=== PATIENT | female | born 1955 | race Caucasian/White ===

== ENCOUNTER 2016-08-10 08:55 | Day surgery (SDC) | payer BC ==
[2016-08-08 10:00] VITALS: BMI 23.1
--- NOTE | 2016-08-10 08:02 | P.GSHP ---
History of Present Illness H&P Date: 08/10/16 CHIEF COMPLAINT: Colon screen HISTORY OF PRESENT ILLNESS: The patient is a 60-year-old female who presents for colon screen. Lower endoscopy was offered for further evaluation and management. PAST MEDICAL HISTORY: Please see list. PAST SURGICAL HISTORY: Please see list. MEDICATIONS: Please see list. ALLERGIES: Please see list. SOCIAL HISTORY: No illicit drug use FAMILY HISTORY: No reports of Crohn disease or ulcerative colitis. REVIEW OF ORGAN SYSTEMS: CONSTITUTIONAL: No reports of fevers or chills. PHYSICAL EXAM: VITAL SIGNS: Stable GENERAL: Well-developed pleasant in no acute distress. HEENT: No scleral icterus. Extraocular movements grossly intact. Moist buccal mucosa. NECK: Supple without lymphadenopathy. CHEST: Unlabored respirations. Equal bilateral excursions. CARDIOVASCULAR: Regular rate and rhythm. Distal 2+ pulses. ABDOMEN: Soft, nontender, nondistended. MUSCULOSKELETAL: No clubbing, cyanosis, or edema. ASSESSMENT: 1. Colon screen. PLAN: 1. Recommend proceeding with a lower endoscopy Past Medical History Past Medical History: Cancer, GERD/Reflux, Hyperlipidemia, Hypertension Additional Past Medical History / Comment(s): HX OF SKIN CANCER, NO LONGER ON BP MEDS., HIATAL HERNIA, STATES BLOOD IN STOOL., RLS. History of Any Multi-Drug Resistant Organisms: None Reported Past Surgical History: Cholecystectomy, Hysterectomy, Orthopedic Surgery Additional Past Surgical History / Comment(s): skin CA, left wrist, TUBAL , JAW SURGERY., EGD . Past Anesthesia/Blood Transfusion Reactions: Motion Sickness, Postoperative Nausea & Vomiting (PONV) Past Psychological History: Anxiety Smoking Status: Former smoker Past Alcohol Use History: Occasional Additional Past Alcohol Use History / Comment(s): QUIT SMOKING 32 YEARS AGO. SMOKED 1PPD. STARTED SMOKING AGE 18. Past Drug Use History: None Reported - Past Family History Father Family Medical History: Cancer Additional Family Medical History / Comment(s): PROSTATE CANCER Medications and Allergies Home Medications Medication Instructions Recorded Confirmed Type Sertraline [Zoloft] 100 mg PO DAILY 11/19/14 08/08/16 History Gabapentin [Neurontin] 300 mg PO HS 08/08/16 08/08/16 History Ibuprofen 400 mg PO DAILY PRN MDD STATES 08/08/16 08/08/16 History TAKEN X1 IN LAST WEEK. Omeprazole [PriLOSEC] 40 mg PO BID 08/08/16 08/08/16 History Rosuvastatin Calcium [Crestor] 40 mg PO HS 08/08/16 08/08/16 History Sudafed (Unknown Dose) 1 tab PO DAILY 08/08/16 History Allergies Allergy/AdvReac Type Severity Reaction Status Date / Time No Known Allergies Allergy Verified 08/08/16 09:44
[~2016-08-10 08:55] MED LIST: LACTATED RINGERS 1,000 ML IV SCH; LIDOCAINE 1% 20 ML VIAL (10MG/ML) FOR IV START INTRADERMA PRN
[2016-08-10 09:14] VITALS: RESP 16; TEMP 97.5
[2016-08-10] MEDS ORDERED: ONDANSETRON 4 MG/2 ML VIAL IVP ONE (09:27)
[2016-08-10] MEDS ORDERED: LIDOCAINE 1% INJ 10MG/ML (20 ML MDV) ONE (09:29)
[2016-08-10] MEDS ORDERED: PROPOFOL 10 MG/ML 20 ML VIAL IV ONE (09:29)
--- NOTE | 2016-08-10 10:13 | P.PCN ---
Date of Procedure: 08/10/16 Preoperative Diagnosis: Postoperative Diagnosis: Procedure(s) Performed: Implants: Indications for Procedure: Operative Findings: Description of Procedure: PREOPERATIVE DIAGNOSIS: Gastroesophageal reflux disease. POSTOPERATIVE DIAGNOSIS: Gastroesophageal reflux disease. Diaphragmatic hiatal hernia without obstruction. OPERATION: Esophagogastroduodenoscopy with biopsies along antrum. SURGEON: Eunice Catherine MD ANESTHESIA: MAC. INDICATIONS: The patient is a 60-year-old female who presents with a history of reflux disease. Benefits and risks of the procedure were described. Informed consent was obtained. DESCRIPTION: The patient was brought into the endoscopy suite and laid in the left lateral decubitus position. An Olympus gastroscope was passed along the posterior oropharynx down to the distal esophagus where the squamocolumnar junction was encountered at 40 cm from the incisors. The stomach was entered and no bile reflux was found. Additional findings are listed below. Biopsies with cold forceps were obtained of the antrum. The first through third portion of the duodenum was examined and unremarkable. Retroflexion of the scope confirmed Hill grade 4 lower esophageal valve. The squamocolumnar junction demostrated LA grade A erosive esophagitis. The stomach was desufflated. The patient tolerated the procedure well. FINDINGS: Squamocolumnar junction 40 cm from the incisors. Diaphragmatic hiatus at 43 cm. Hiatal hernia 3 cm. Hill grade 4 lower esophageal valve. LA grade A erosive esophagitis. No active duodenitis. Mild chronic gastritis. RECOMMENDATIONS: Continue medical therapy. Further recommendations pending results of pathology report. Upper endoscopy as needed. Will benefit from antireflux surgical procedure
[2016-08-10 10:48] VITALS: BP 152/85; PULSE 63
== END 2016-08-10 11:45 | disposition home or self-care (01) ==
LOC: ORWHC2ENDO 08:55
PROVIDERS: ATTEND Surgery Plastic and Reconstructive Surgery
DX: Z12.11 Encounter for screening for malignant neoplasm of colon (principal); K63.5 Polyp of colon; K29.50 Unspecified chronic gastritis without bleeding; Z87.891 Personal history of nicotine dependence; K21.9 Gastro-esophageal reflux disease without esophagitis; I10 Essential (primary) hypertension; E78.5 Hyperlipidemia, unspecified; Z79.899 Other long term (current) drug therapy
CPT/HCPCS: 88305; 88342; 45380; 43239; J2405; J2001; J2704

== ENCOUNTER 2016-10-07 09:27 | Inpatient (IN) | payer BC, OTHER ==
[2016-09-29 16:48] VITALS: BMI 23.3
--- NOTE | 2016-10-07 06:56 | P.GSHP ---
History of Present Illness H&P Date: 10/07/16 CHIEF COMPLAINT: Paraesophageal hiatal hernia with gastroesophageal reflux disease. HISTORY OF PRESENT ILLNESS: The patient is a 60-year-old female who presents with paraesophageal hiatal hernia. She has completed an esophageal manometry including upper endoscopy workup. Now she presents for surgical intervention. PAST MEDICAL HISTORY: Please see list. PAST SURGICAL HISTORY: Please see list. MEDICATIONS: Please see list. ALLERGIES: Please see list. SOCIAL HISTORY: No illicit drug use FAMILY HISTORY: No reports of Crohn disease or ulcerative colitis. REVIEW OF ORGAN SYSTEMS: CONSTITUTIONAL: No reports of fevers or chills. GI: Denies any blood in stools or constipation. PHYSICAL EXAM: VITAL SIGNS: Stable GENERAL: Well-developed pleasant and in no acute distress. HEENT: No scleral icterus. Extraocular movements grossly intact. Moist buccal mucosa. NECK: Supple without lymphadenopathy. CHEST: Unlabored respirations. Equal bilateral excursions. CARDIOVASCULAR: Regular rate and rhythm. Distal 2+ pulses. ABDOMEN: Soft, nondistended. No peritoneal signs. MUSCULOSKELETAL: No clubbing, cyanosis, or edema. ASSESSMENT: 1. Diaphragmatic paraesophageal hiatal hernia with severe gastroesophageal reflux disease. PLAN: 1. Recommend proceeding with a laparoscopic paraesophageal hiatal hernia with possible Chen and mesh placement. 2. Benefits and risks of surgical intervention was discussed including possibility of open technique. 3. Inpatient hospitalization recommended of 2 nights or less. 4. DVT prophylaxis. 5. Antibiotic prophylaxis. 6. She has also completed a very low caloric high-protein diet to address underlying hepatomegaly. Past Medical History Past Medical History: Cancer, GERD/Reflux, Hyperlipidemia, Hypertension Additional Past Medical History / Comment(s): HX OF SKIN CANCER. OFF HTN RX SINCE 2014. HIATAL HERNIA. HX BLOOD IN STOOL. RLS. VARICOSE VEINS. History of Any Multi-Drug Resistant Organisms: None Reported Past Surgical History: Cholecystectomy, Hysterectomy, Orthopedic Surgery Additional Past Surgical History / Comment(s): Skin CA. LT wrist. TUBAL . TMJ, JAW SURGERY. COLONOSCOPY. EGD . Past Anesthesia/Blood Transfusion Reactions: Motion Sickness, Postoperative Nausea & Vomiting (PONV) Smoking Status: Former smoker - Past Family History Father Family Medical History: Cancer Additional Family Medical History / Comment(s): PROSTATE CANCER Medications and Allergies Home Medications Medication Instructions Recorded Confirmed Type Sertraline [Zoloft] 100 mg PO DAILY 11/19/14 09/29/16 History Gabapentin [Neurontin] 300 mg PO HS 08/08/16 09/29/16 History Ibuprofen 400 mg PO DAILY PRN 08/08/16 09/29/16 History Omeprazole [PriLOSEC] 40 mg PO BID PRN 08/08/16 09/29/16 History Rosuvastatin Calcium [Crestor] 40 mg PO HS 08/08/16 09/29/16 History Sudafed (Unknown Dose) 1 tab PO DAILY 08/08/16 09/29/16 History Fluticasone Nasal [place] [Flonase 2 spr EA NOSTRIL DAILY PRN 09/29/16 09/29/16 History Nasal [place]] Allergies Allergy/AdvReac Type Severity Reaction Status Date / Time No Known Allergies Allergy Verified 09/29/16 16:13
[~2016-10-07 09:27] MED LIST changes: +ACETAMINOPHEN IVPB ONE; +DEXAMETHASONE SOD PHOSPHATE 10 MG/ML 1 ML VIAL IV ONE; +HEPARIN SODIUM,PORCINE 5,000 UNIT/ML 1 ML VIAL SQ ONE; +HYDROmorphone 1 MG/ML 1 ML SYRINGE IVP PRN; -LIDOCAINE 1% 20 ML VIAL (10MG/ML) FOR IV START INTRADERMA PRN; +MIDAZOLAM 2 MG/2 ML VIAL IV PRN; +ONDANSETRON 4 MG/2 ML VIAL IVP ONE; +SCOPOLAMINE 1.5MG/72HR PATCH TRANSDERM ONE; +SCOPOLAMINE 1.5MG/72HR PATCH TRANSDERM STA; +ceFAZolin 2 GM in SODIUM CHLORIDE 0.9% 100 ML IVPB ONE
[2016-10-07] MEDS ORDERED: PROPOFOL 10 MG/ML 20 ML VIAL IV ONE (11:44)
[2016-10-07] MEDS ORDERED: LIDOCAINE 1% INJ 10MG/ML (20 ML MDV) ONE (11:44)
[2016-10-07] MEDS ORDERED: SUCCINYLCHOLINE CHLORIDE 100 MG/5 ML SYR IV ONE (11:44)
[2016-10-07] MEDS ORDERED: ePHEDrine SULFATE/0.9% NACL/PF 50 MG/5 ML SYRINGE IV ONE (11:44)
[2016-10-07] MEDS ORDERED: fentaNYL (PF) 50 MCG/ML 2 ML AMP ONE (11:44)
[2016-10-07] MEDS ORDERED: HYDROmorphone (PF) 1 MG/ML ONE (11:44)
[2016-10-07] MEDS ORDERED: ROCURONIUM BROMIDE 10 MG/ML 10 ML VIAL IV ONE (11:44)
[2016-10-07] MEDS ORDERED: GLYCOPYRROLATE 0.2 MG/ML 2 ML VIAL ONE (11:44)
[2016-10-07] MEDS ORDERED: LABETALOL 5 MG/ML VIAL MDV ONE (11:44)
[2016-10-07] MEDS ORDERED: NEOSTIGMINE 1 MG/ML 10 ML VIAL ONE (11:44)
[2016-10-07] MEDS ORDERED: BUPIVACAINE (PF) 0.25% 30 ML VIAL SQ ONE (12:59)
--- NOTE | 2016-10-07 14:01 | P.PCN ---
Date of Procedure: 10/07/16 Preoperative Diagnosis: Gastroesophageal reflux disease, paraesophageal hiatal hernia Postoperative Diagnosis: Same, 5 cm reducible paraesophageal hiatal hernia Procedure(s) Performed: Laparoscopic paraesophageal hiatal hernia hernia repair, 5 cm with lower Biopatch a, intraoperative esophagogastroduodenoscopy Implants: Anesthesia: GETA, local Surgeon: Eunice Catherine Estimated Blood Loss (ml): 5 Pathology: none sent Condition: stable Disposition: floor Indications for Procedure: Operative Findings: 1. Paraesophageal hiatal hernia, 5 cm. 2. Intra-abdominal esophageal length over 3 cm. 3. Third arm docked along the right side of the patient. 4. Severe pelvic adhesions. Description of Procedure:
[2016-10-07] MEDS ORDERED: NALOXONE 0.4 MG/ML 1 ML VIAL IV PRN (14:02)
[2016-10-07] MEDS ORDERED: ONDANSETRON 4 MG/2 ML VIAL IVP PRN (14:02)
[2016-10-07] MEDS ORDERED: diphenhydrAMINE 50 MG/ML 1 ML VIAL IVP PRN (14:02)
--- NOTE | 2016-10-07 14:41 | P.HPADDEND ---
H&P Addendum H&P Addendum Date: 10/07/16 Robotic-assisted laparoscopic hiatal hernia repair was also discussed as an option for surgical intervention.
[2016-10-07] MEDS: 0.9% NACL WITH KCL 20 MEQ/L 1,000 ML IV SCH ×2 (16:10→18:26)
[2016-10-07] MEDS: KETOROLAC 30 MG/ML 1 ML VIAL IVP SCH ×2 (16:10→23:56)
[2016-10-07] MEDS: MAGNESIUM SULFATE-D5W PMX 1 GM in DEXTROSE/WATER 1 100ML.BAG IVPB SCH ×2 (16:10→17:11)
[2016-10-07] MEDS: ALBUTEROL NEBULIZED 2.5 MG/3 ML INHALATION SCH ×2 (16:50→20:25)
[2016-10-07] MEDS: HYDROcodone/APAP 15 ML SOLUTION PO PRN (17:06)
[2016-10-07] MEDS: AMPICILLIN-SULBACTAM 3 GM in SODIUM CHLORIDE 0.9% 100 ML IVPB SCH ×2 (18:44→23:50)
[2016-10-07] MEDS: METOCLOPRAMIDE 5 MG/ML 2 ML VIAL IVP SCH (18:44)
[2016-10-07] MEDS: SIMETHICONE 40 MG/0.6 ML DROPS 2,000 MG/30 ML BOTTLE PO SCH ×2 (18:48→23:52)
[2016-10-07] MEDS: HYOSCYAMINE ORAL DROPS 1.875 MG/15 ML BOTTLE PO SCH ×2 (18:49→23:53)
--- NOTE | 2016-10-07 20:36 | P.PN ---
Progress Note - Text Patient seen and evaluated this evening. She reports immediate improvement and resolution of her reflux disease. She reports intolerance to her nebulizers. She does complain of shoulder discomfort which is expected given laparoscopic surgery. Patient may be discharged home tomorrow following her esophagram with follow-up in the office next week. Strict no lifting over for 4 pounds in 4 weeks.
[2016-10-08] MEDS: METOCLOPRAMIDE 5 MG/ML 2 ML VIAL IVP SCH ×2 (00:01→06:10)
[2016-10-08] MEDS: HYDROcodone/APAP 15 ML SOLUTION PO PRN (00:08)
[2016-10-08] MEDS: 0.9% NACL WITH KCL 20 MEQ/L 1,000 ML IV SCH (02:52)
[2016-10-08] MEDS: KETOROLAC 30 MG/ML 1 ML VIAL IVP SCH (06:02)
[2016-10-08] MEDS: HYOSCYAMINE ORAL DROPS 1.875 MG/15 ML BOTTLE PO SCH (06:07)
[2016-10-08] MEDS: SIMETHICONE 40 MG/0.6 ML DROPS 2,000 MG/30 ML BOTTLE PO SCH (06:09)
[2016-10-08 07:10] LABS: Basophils % (A) 0 %; CH 30.8; CHCM 34.2; Eosinophils % (A) 0 %; HCT 33.9 % (34.0-46.0); HDW 2.86; Luc # (Auto) 0.16; Luc % (Auto) 2; Lymphocytes % (A) 12 %; MCH 29.5 pg (25.0-35.0); MCHC 32.5 g/dL (31.0-37.0); MCV 90.6 fL (80.0-100.0); Mean Platelet Volume 7.8; Monocytes # (A) 0.3 k/uL (0-1.0); Monocytes % (A) 4 %; Neutrophils % (A) 82 %; RBC 3.74 m/uL (3.80-5.40); RDW 14.5 % (11.5-15.5); WBC 8.5 k/uL (3.8-10.6); WBC (Perox) 9.07
[2016-10-08 07:18] LABS: Anion Gap 5 mmol/L; Blood Urea Nitrogen 9 mg/dL (7-17); Calcium 8.5 mg/dL (8.4-10.2); Carbon Dioxide 26 mmol/L (22-30); Chloride 110 mmol/L (98-107); Magnesium 2.1 mg/dL (1.6-2.3); Non-African American GFR(MDRD) >60 (>60 ml/min/1.73 sqM); Phosphorus 2.6 mg/dL (2.5-4.5); Potassium 4.5 mmol/L (3.5-5.1); Sodium 141 mmol/L (137-145)
[2016-10-08 07:33] VITALS: BP 123/76; PULSE 74; RESP 16; TEMP 98.7
--- NOTE | 2016-10-08 07:59 | FL ---
SINGLE CONTRAST UPPER GI EXAMINATION: CLINICAL HISTORY: 60-year-old female postop Chen fundoplication, hiatal hernia repair. TECHNIQUE: Single contrast exam performed with 50 ml Omnipaque 350 contrast. Total fluoroscopy time: 20 seconds. Total images: 13. FINDINGS: The patient swallowed oral contrast without difficulty or delay. Esophageal peristalsis and motility are within normal limits. There are postsurgical changes of Chen fundoplication. There is good evon w of contrast along the course of the lap band, there is no evidence of contrast extravasation to sug gest leak. No postsurgical free air seen. Prominent air and fluid distending the stomach below the cordero rgical level. IMPRESSION: No evidence of leak or significant obstruction status post Chen fundoplication. Prominent air and f luid-filled stomach below the fundoplication.
[2016-10-08] MEDS ORDERED: 0.9% NACL WITH KCL 20 MEQ/L 1,000 ML IV SCH (08:00)
[2016-10-08] MEDS ORDERED: ENOXAPARIN 40 MG/0.4 ML SYRINGE SQ SCH (09:00)
[2016-10-08] MEDS ORDERED: PANTOPRAZOLE 40 MG/10 ML VIAL IV SCH (09:00)
--- NOTE | 2016-10-10 17:18 | P.OP ---
Date of Procedure: 10/07/16 Preoperative Diagnosis: Postoperative Diagnosis: Procedure(s) Performed: Implants: Indications for Procedure: Operative Findings: Description of Procedure: DESCRIPTION OF PROCEDURE(S): SURGEON: MONET HUFF MD MANAGER INVESTMENT: Wendy Prince PREOPERATIVE DIAGNOSES: 1. Gastroesophageal reflux disease. 2. Symptomatic paraesophageal midline diaphragmatic hiatal hernia. 3. History of past tobacco use. 4. Hyperlipidemia. 5. Hypertensive heart disease. 6. Postoperative nausea and vomiting. POSTOPERATIVE DIAGNOSES: 1. Gastroesophageal reflux disease. 2. Symptomatic reducible paraesophageal midline diaphragmatic hiatal hernia, 5 cm. 3. History of past tobacco use. 4. Hyperlipidemia. 5. Hypertensive heart disease. 6. Postoperative nausea and vomiting. 7. Lower abdominal peritoneal adhesions. OPERATION: 1. Robotic-assisted laparoscopic repair of reducible midline paraesophageal hiatal hernia, 5 cm, with Cotton Biopatch A 8 x 8 cm. 2. Intraoperative esophagogastroduodenoscopy ANESTHESIA: General with local anesthetic. ESTIMATED BLOOD LOSS: 5 mL SPECIMENS REMOVED: Mediastinal mass with hernia sac. COMPLICATIONS: None. FINDINGS: 1. Thoracic length 15 cm. 2. Port splaced 15 cm distal. 3. Severe pelvic adhesions. 4. 5 cm paraesophageal incarcerated diaphragmatic hiatal hernia with moderate dissection into the mediastinum. 5. Cotton Biopatch A onlay mesh placed. 6. Closure of the hiatus consistent with 56-Cypriot bougie. 7. Intra-abdominal esophageal length over 3 cm. 8. Third arm docked along the right side of the patient. INDICATIONS: The patient is a 60-year-old female who presents with regurgitation, gastroesophageal reflux disease poorly controlled despite medications, and a symptomatic diaphragmatic hiatal hernia. Preoperative workup including upper endoscopy demonstrated a Hill grade 4 lower esophageal valve. She completed an esophageal manometry. Given the severity of her symptoms, particularly of her symptomatic diaphragmatic hiatal hernia, she had elected for surgical intervention. Benefits and risks including bleeding, infection, recurrence, dysphagia, injury to the lung, need for further surgery was described at length. Informed consent was obtained. DESCRIPTION: The patient was brought into the operating room and placed in supine position. Preoperatively she had received Heparin subcutaneously for DVT prophylaxis. After general induction, the abdomen was prepped and draped in standard sterile fashion. The patient had previously voided prior to coming to the operating room. Ioban draping was placed along the abdomen. A timeout protocol was confirmed with the surgical team, for which the patient's name, procedure to be performed including DVT prophylaxis with bilateral SCDs, and preoperative antibiotics were also confirmed. A robotic da Jhon Si system was prepped and primed. At 15 cm from the xiphoid to just lateral to the umbilicus, proposed port sites were marked with indelible marker along the left axillary line, left mid-clavicular line with each port marked 10 cm from each other. A 5 mm 0 degrees laparoscopic trocar entry was performed along the left upper quadrant. The abdomen was insufflated to 15 mmHg pressure she tolerated well. Diagnostic laparoscopy demonstrated no injury to bowel, viscera, or mesentery. The liver surface was unremarkable. No injury had occurred to the small bowel or viscera. Along the hiatus, a defect was found anteriorly. Separately, severe lower pelvic adhesions were identified including along the left lateral abdominal wall. As result of moderate adhesions along the left lateral abdominal wall, a third arm was proposed to be docked along the right lateral abdominal wall. Next, one 8 mm robotic port was placed along the right upper abdomen. An 8-mm port was were placed along the right lateral abdominal wall. The camera 12-mm port extended length was maintained along the epigastrium. Another 8 mm port was placed along the left upper abdominal wall after exchanging the 5 mm port. Please note that the ports were placed at least 20 cm away from the target anatomy. Care was taken to check that each robotic arm were safely away from collision with the bed or the patient. At the epigastrium, a median sized Tres liver retractor was placed under direct visualization with the Iron Log Grader placed over the right shoulder of the patient. The additional third robotic arm was placed along the right aspect of the patient. The patient was repositioned in reverse Trendelenburg position after lowering the bed. The robot was docked above the head of the patient. Using a grasper for arm 3, a grasper for arm 2, including vessel sealer for arm 1, the robotic system was docked and primed as described. Instruments were interchanged by the liaison inspection laboratory assistant including cautery, scissors, and needle delivery route driver. I had sat at the console. The gastrohepatic ligament was cleaved using a vessel sealer. Next, the phrenoesophageal ligament was mobilized and the distal esophagus was mobilized circumferentially without injury to the bilateral vagi nerves. The left and right crura was identified. A moderate sized midline large hiatal hernia and sac was found into the mediastinum. Significant mobilization of the distal to mid esophagus into the mediastinum was performed without injury to the vagotomy nerves. Circumferentially, the hernia sac was excised and brought into the peritoneal cavity. Care was taken to avoid any gastrotomy to the upper pole of the stomach. The measured defect was consistent with 5 cm. After extensive dissection, the distal esophagus at least cm was brought into the abdominal cavity. A large mediastinal mass of 5 cm x 9 cm, which is also a lead point for the incarcerated paraesophageal hiatal hernia, was resected using a vessel sealer and placed into abdominal cavity for later extraction of the specimen using an Endo Catch bag. Once the hiatus and crura was dissected, 2-0 VLOC suture was placed with a running suture of [id number] suture to reapproximate the diaphragmatic hiatus posteriorly. To buttress the repair, a Cotton Biopatch A was prepared along the back table and cut in a glaser-hole fashion as to reinforce the repair as an underlay. The mesh was placed along the crural repair and tagged using 2-0 VLOC suture. The robot was undocked from the patient. I went to the head of the bed to perform intraoperative esophagogastroduodenoscopy. An Olympus gastroscope was passed through posterior oropharynx, where the GE junction was found distal to the diaphragmatic hiatus. The intra-abdominal esophageal length obtained during the case was over 3 cm. The stomach was entered. Retroflexion of the scope confirmed a Hill grade 1 lower esophageal valve. The stomach had been desufflated. No evidence of leaks were found either of the mucosal defects of the esophagus or stomach. A 52 Cypriot bougie was passed careful along the posterior esophagus and beyond the hiatal repair confirming appropriate closure. This concluded the endoscopic portion of the case. I re-scrubbed into the case. All instruments and pneumoperitoneum were evacuated from the abdominal cavity. Incisions were reapproximated using 4-0 Monocryl in an interrupted subcuticular fashion. The 12-mm port site was oversewn using 0 Vicryl in a Noel [place]ning[place]. Dermabond was applied to the skin. Local anesthetic was infiltrated in all wounds for postop analgesia. Multiple intra-abdominal films were obtained. At the end of the procedure, needle, sponge, and instrument count was verified correct by the surgical appliance fitter. The patient had tolerated the procedure well and was taken to the postanesthesia unit in stable condition. Intraoperative films were reviewed with the patient's family who was pleased with the level of care.
--- NOTE | 2016-10-10 17:21 | P.DS ---
Providers Date of admission: 10/07/16 10:26 Expected date of discharge: 10/08/16 Attending physician: Eunice Catherine Primary care physician: Stated None - Discharge Diagnosis(es) (1) Paraesophageal hiatal hernia Status: Acute (2) Gastroesophageal reflux disease Status: Acute (3) Hypertension Status: Acute (4) Hyperlipidemia Status: Acute (5) History of repair of hiatal hernia Status: Acute Hospital Course: POSTOPERATIVE DIAGNOSES: 1. Gastroesophageal reflux disease. 2. Symptomatic reducible paraesophageal midline diaphragmatic hiatal hernia, 5 cm. 3. History of past tobacco use. 4. Hyperlipidemia. 5. Hypertensive heart disease. 6. Postoperative nausea and vomiting. 7. Lower abdominal peritoneal adhesions. COURSE: The patient is a 60-year-old female who comes with history of symptomatic diaphragmatic hiatal hernia including severe reflux disease. She completed outpatient studies including upper endoscopy as well as manometry. She elected for a laparoscopic hiatal hernia repair however performed robotically. Postoperatively, she was tolerating diet. Her reflux disease and symptoms had completely resolved. She had passed her esophagram. Post hiatal hernia diet instructions were reviewed. The patient was discharged home with instructions to discontinue her antiacids. Pertinent Studies: Esophagram demonstrated no leak or obstruction Procedures: OPERATION: 1. Robotic-assisted laparoscopic repair of reducible midline paraesophageal hiatal hernia, 5 cm, with Kersey Biopatch A 8 x 8 cm. 2. Intraoperative esophagogastroduodenoscopy Patient Condition at Discharge: Good Plan - Discharge Summary New Discharge Prescriptions: New Hydrocodone/Acetaminophen [[place] 5-325] 1 - 2 each PO Q6HR PRN #20 tab PRN Reason: Pain Discontinued Omeprazole [PriLOSEC] 40 mg PO BID PRN PRN Reason: GERD No Action Sertraline [Zoloft] 100 mg PO DAILY Gabapentin [Neurontin] 300 mg PO HS Sudafed (Unknown Dose) 1 tab PO DAILY Rosuvastatin Calcium [Crestor] 40 mg PO HS Ibuprofen 400 mg PO DAILY PRN PRN Reason: Pain Fluticasone Nasal [place] [Flonase Nasal [place]] 2 spr EA NOSTRIL DAILY PRN PRN Reason: ALLERGIES/SINUS Discharge Medication List Sertraline [Zoloft] 100 mg PO DAILY 11/19/14 [History] Gabapentin [Neurontin] 300 mg PO HS 08/08/16 [History] Ibuprofen 400 mg PO DAILY PRN 08/08/16 [History] Rosuvastatin Calcium [Crestor] 40 mg PO HS 08/08/16 [History] Sudafed (Unknown Dose) 1 tab PO DAILY 08/08/16 [History] Fluticasone Nasal [place] [Flonase Nasal [place]] 2 spr EA NOSTRIL DAILY PRN [History] Hydrocodone/Acetaminophen [[place] 5-325] 1 - 2 each PO Q6HR PRN #20 tab 10/07/16 [Rx] Follow up Appointment(s)/Referral(s): Eunice Catherine MD [STAFF PHYSICIAN] - 10/11/16 Patient Instructions/Handouts: Full Liquid Diet (DC), Laparoscopic Hiatal Hernia Repair (DC) Activity/Diet/Wound Care/Special Instructions: No lifting over 4 pounds in [address] Catherine [facility] dietary guideline. No meats, breads or carbonated beverages for 4 weeks. If any fever, increased abdominal pain, difficulty swallowing, or redness at the incision sites call Dr Catherine. Drink plenty of fluids and follow the dietary instructions given to you by the doctor and c.o.d. biller. See the doctor on 10-11-16, but you will need to call Monday for a time Discharge Disposition: HOME SELF-CARE
== END 2016-10-08 12:18 | disposition home or self-care (01) | DRG 328 ==
LOC: 2ORWHC 10:26 → OBSVTOIN 10:26 → INTOOBSV 10:26 → 6PED 14:15
PROVIDERS: ADMIT Surgery Plastic and Reconstructive Surgery; ATTEND Surgery Plastic and Reconstructive Surgery
PROC: 0BUR4JZ (ICD-10-PCS; 2016-10-07)
PROC: 8E0W4CZ Robotic Assisted Procedure of Trunk Region, Percutaneous Endoscopic Approach (ICD-10-PCS; 2016-10-07)
PROC: 0BUS4JZ (ICD-10-PCS; principal; 2016-10-07 11:30)
DX: K44.0 Diaphragmatic hernia with obstruction, without gangrene (principal); I11.9 Hypertensive heart disease without heart failure; R16.0 Hepatomegaly, not elsewhere classified; K21.9 Gastro-esophageal reflux disease without esophagitis; K66.0 Peritoneal adhesions (postprocedural) (postinfection); R22.2 Localized swelling, mass and lump, trunk; E78.5 Hyperlipidemia, unspecified; M25.519 Pain in unspecified shoulder; G25.81 Restless legs syndrome; R11.2 Nausea with vomiting, unspecified; Z85.828 Personal history of other malignant neoplasm of skin; Z79.899 Other long term (current) drug therapy; Z87.891 Personal history of nicotine dependence; Z79.1 Long term (current) use of non-steroidal anti-inflammatories (NSAID)
CPT/HCPCS: 74240; 80051; 82310; 82565; 83735; 84100; 84520; 85025; 86850; 86900; 86901; 94640

== ENCOUNTER → 2017-07-13 | Outpatient (CLI) | payer BC, OTHER ==
--- NOTE | 2017-07-27 12:13 | MM ---
Reason for exam: screening (asymptomatic). Last mammogram was performed 1 year and 8 months ago. History: Patient is postmenopausal. Benign ultrasound-guided core biopsy of the left breast, September 21, 1998. Core biopsy of the left breast. Physical Findings: A clinical breast exam by your physician is recommended on an annual basis and results should be correlated with mammographic findings. MG Screening Mammo w CAD Bilateral CC and MLO view(s) were taken. Prior study comparison: January 07, 2014, bilateral MG screening mammo w CAD. May 01, 2012, bilateral digital screening mammo w/CAD. The breast tissue is heterogeneously dense. This may lower the sensitivity of mammography. No significant changes when compared with prior studies. ASSESSMENT: Benign, BI-RAD 2 RECOMMENDATION: Routine screening mammogram of both breasts in 1 year.
== END | disposition home or self-care (01) ==
LOC: RADMAMWWP 12:37
PROVIDERS: ATTEND Family Medicine
DX: Z12.31 Encounter for screening mammogram for malignant neoplasm of breast (principal)
CPT/HCPCS: 77067

== ENCOUNTER 2017-08-17 15:26 | Emergency (ER) | payer BC, OTHER ==
[2017-08-17] MEDS ORDERED: SODIUM CHLORIDE 0.9% 1,000 ML IV ONE (16:38)
--- NOTE | 2017-08-17 16:41 | ED ---
General Adult HPI - General Chief complaint: GI Bleed Stated complaint: vomiting/black stool Time Seen by Provider: 08/17/17 16:23 Source: patient, RN notes reviewed, old records reviewed Mode of arrival: ambulatory Limitations: no limitations - History of Present Illness Initial comments: 61-year-old female presents for evaluation of nausea vomiting and diarrhea. Patient presents for concerns of dark tarry stool and GI bleed. She states that on Monday she developed nausea and vomiting, this progressed to diarrhea. She has had diarrhea for the past 4 days. Denies abdominal pain. Denies fever or chills. She has had some nausea since her initial episodes of vomiting but has had no vomiting in the past several days. She has no pain complaints. She' s been unable to eat much secondary to her nausea. Today she developed some dark flecks in her diarrhea was concern for bleeding. She is not on any anticoagulation, she has past medical history of hypertension and hypercholesterolemia. - Related Data Home Medications Medication Instructions Recorded Confirmed Gabapentin [Neurontin] 300 mg PO HS 08/08/16 08/17/17 Ibuprofen 400 mg PO DAILY PRN 08/08/16 08/17/17 Rosuvastatin Calcium [Crestor] 40 mg PO HS 08/08/16 08/17/17 Fluticasone Nasal [place] [Flonase 2 spr EA NOSTRIL DAILY PRN 09/29/16 08/17/17 Nasal [place]] DULoxetine HCL [Cymbalta] 60 mg PO DAILY 08/17/17 08/17/17 Lisinopril [Prinivil] 5 mg PO DAILY 08/17/17 08/17/17 Allergies Allergy/AdvReac Type Severity Reaction Status Date / Time No Known Allergies Allergy Verified 08/17/17 17:01 Review of Systems ROS Statement: Those systems with pertinent positive or pertinent negative responses have been documented in the HPI. ROS Other: All systems not noted in ROS Statement are negative. Past Medical History Past Medical History: Cancer, GERD/Reflux, Hyperlipidemia, Hypertension Additional Past Medical History / Comment(s): HX OF SKIN CANCER. OFF HTN RX SINCE 2014. HIATAL HERNIA. HX BLOOD IN STOOL. RLS. VARICOSE VEINS. History of Any Multi-Drug Resistant Organisms: None Reported Past Surgical History: Cholecystectomy, Hysterectomy, Orthopedic Surgery Additional Past Surgical History / Comment(s): Skin CA. LT wrist. TUBAL . TMJ, JAW SURGERY. COLONOSCOPY. EGD . Past Anesthesia/Blood Transfusion Reactions: Motion Sickness, Postoperative Nausea & Vomiting (PONV) Past Psychological History: Anxiety, Depression Smoking Status: Former smoker Past Alcohol Use History: Occasional Past Drug Use History: None Reported - Past Family History Father Family Medical History: Cancer Additional Family Medical History / Comment(s): PROSTATE CANCER General Exam Limitations: no limitations General appearance: alert, in no apparent distress Head exam: Present: atraumatic, normocephalic Eye exam: Present: normal appearance, PERRL, EOMI ENT exam: Present: mucous membranes dry Neck exam: Present: normal inspection. Absent: tenderness, meningismus Respiratory exam: Present: normal lung sounds bilaterally. Absent: respiratory distress, wheezes Cardiovascular Exam: Present: regular rate, normal rhythm GI/Abdominal exam: Present: soft. Absent: distended, tenderness, guarding, rebound Rectal exam: Present: normal inspection, normal rectal tone. Absent: black stool, bloody stool Extremities exam: Present: normal inspection, full ROM, normal capillary refill. Absent: pedal edema Neurological exam: Present: alert, oriented X3, CN II-XII intact. Absent: motor sensory deficit Psychiatric exam: Present: normal affect, normal mood Skin exam: Present: warm, dry, intact. Absent: cyanosis, diaphoretic Course Vital Signs 08/17/17 08/17/17 15:41 18:04 Temperature 98.4 F Pulse Rate 89 68 Respiratory 18 16 Rate Blood Pressure 141/91 144/67 O2 Sat by Pulse 98 99 Oximetry Medical Decision Making - Medical Decision Making 61-year-old female presenting with nausea vomiting and diarrhea. Patient is concerned that she may have developed some rectal bleeding with dark stool. On rectal exam there is no melena, no octavio blood, heme occult is negative. CBC within normal limits. CMP reveals potassium 3.3 which is replaced. Urinalysis is positive for 1+ ketones consistent with dehydration. As well as 6 RBCs. Patient did have some left flank pain and has history of kidney stones, therefore CT was obtained this is negative for renal stones. There is inflammation throughout the colon consistent with colitis. Patient will continue oral rehydration at home. She will follow with her primary care physician. - Lab Data Result diagrams: 08/17/17 16:42 08/17/17 16:42 Lab Results 08/17/17 08/17/1718 Range/Units 16:42 16:42 16:42 WBC 8.5 (3.8-10.6) k/uL RBC 4.55 (3.80-5.40) m/uL Hgb 14.1 (11.4-16.0) gm/dL Hct 40.7 (34.0-46.0) % MCV 89.4 (80.0-100.0) fL MCH 31.0 (25.0-35.0) pg MCHC 34.7 (31.0-37.0) g/dL RDW 13.9 (11.5-15.5) % Plt Count 213 (150-450) k/uL Neutrophils % 66 % Lymphocytes % 26 % Monocytes % 5 % Eosinophils % 1 % Basophils % 1 % Neutrophils # 5.6 (1.3-7.7) k/uL Lymphocytes # 2.2 (1.0-4.8) k/uL Monocytes # 0.4 (0-1.0) k/uL Eosinophils # 0.1 (0-0.7) k/uL Basophils # 0.0 (0-0.2) k/uL PT 10.9 (9.0-12.0) sec INR 1.1 (<1.2) APTT 25.3 (22.0-30.0) sec Sodium (137-145) mmol/L Potassium (3.5-5.1) mmol/L Chloride (98-107) mmol/L Carbon Dioxide (22-30) mmol/L Anion Gap mmol/L BUN (7-17) mg/dL Creatinine (0.52-1.04) mg/dL Est GFR (CKD-EPI)AfAm (>60 ml/min/1.73 sqM) Est GFR (CKD-EPI)NonAf (>60 ml/min/1.73 sqM) Glucose (74-99) mg/dL Calcium (8.4-10.2) mg/dL Total Bilirubin (0.2-1.3) mg/dL AST (14-36) U/L ALT (9-52) U/L Alkaline Phosphatase (38-126) U/L Total Protein (6.3-8.2) g/dL Albumin (3.5-5.0) g/dL Urine Color Urine Appearance (Clear) Urine pH (5.0-8.0) Ur Specific [place] (1.001-1.035) Urine Protein (Negative) Urine Glucose (UA) (Negative) Urine Ketones (Negative) Urine Blood (Negative) Urine Nitrite (Negative) Urine Bilirubin (Negative) Urine Urobilinogen (<2.0) mg/dL Ur Leukocyte Esterase (Negative) Urine RBC (0-5) /hpf Urine WBC (0-5) /hpf Ur Squamous Epith Cells (0-4) /hpf Urine Bacteria (None) /hpf Urine Mucus (None) /hpf Stool Occult Blood (Negative) Blood Type O Positive Blood Type Recheck No Antibody Screen NEGATIVE Spec Expiration Date 08/20/2017 - 234108/17/17 08/17/17 08/17/17 Range/Units 16:42 16:45 17:10 WBC (3.8-10.6) k/uL RBC (3.80-5.40) m/uL Hgb (11.4-16.0) gm/dL Hct (34.0-46.0) % MCV (80.0-100.0) fL MCH (25.0-35.0) pg MCHC (31.0-37.0) g/dL RDW (11.5-15.5) % Plt Count (150-450) k/uL Neutrophils % % Lymphocytes % % Monocytes % % Eosinophils % % Basophils % % Neutrophils # (1.3-7.7) k/uL Lymphocytes # (1.0-4.8) k/uL Monocytes # (0-1.0) k/uL Eosinophils # (0-0.7) k/uL Basophils # (0-0.2) k/uL PT (9.0-12.0) sec INR (<1.2) APTT (22.0-30.0) sec Sodium 140 (137-145) mmol/L Potassium 3.3 L (3.5-5.1) mmol/L Chloride 101 (98-107) mmol/L Carbon Dioxide 27 (22-30) mmol/L Anion Gap 12 mmol/L BUN 15 (7-17) mg/dL Creatinine 0.60 (0.52-1.04) mg/dL Est GFR (CKD-EPI)AfAm >90 (>60 ml/min/1.73 sqM) Est GFR (CKD-EPI)NonAf >90 (>60 ml/min/1.73 sqM) Glucose 87 (74-99) mg/dL Calcium 9.9 (8.4-10.2) mg/dL Total Bilirubin 0.8 (0.2-1.3) mg/dL AST 46 H (14-36) U/L ALT 31 (9-52) U/L Alkaline Phosphatase 77 (38-126) U/L Total Protein 7.4 (6.3-8.2) g/dL Albumin 4.7 (3.5-5.0) g/dL Urine Color Yellow Urine Appearance Clear (Clear) Urine pH 5.5 (5.0-8.0) Ur Specific [place] 1.025 (1.001-1.035) Urine Protein 1+ H (Negative) Urine Glucose (UA) Negative (Negative) Urine Ketones 1+ H (Negative) Urine Blood Moderate H (Negative) Urine Nitrite Negative (Negative) Urine Bilirubin Negative (Negative) Urine Urobilinogen 2.0 (<2.0) mg/dL Ur Leukocyte Esterase Negative (Negative) Urine RBC 6 H (0-5) /hpf Urine WBC 3 (0-5) /hpf Ur Squamous Epith Cells <1 (0-4) /hpf Urine Bacteria Rare H (None) /hpf Urine Mucus Moderate H (None) /hpf Stool Occult Blood Negative (Negative) Blood Type Blood Type Recheck Antibody Screen Spec Expiration Date Disposition Clinical Impression: Colitis, Nausea vomiting and diarrhea Disposition: HOME SELF-CARE Condition: Good Instructions: Colitis (ED) Is patient prescribed a controlled substance at d/c from ED?: No Referrals: Ena Pagan MD [Primary Care Provider] - 1-2 days Time of Disposition: 18:29
[2017-08-17 16:55] LABS: Basophils % (A) 1 %; Eosinophils # (A) 0.1 k/uL (0-0.7); Eosinophils % (A) 1 %; HCT 40.7 % (34.0-46.0); HGB 14.1 gm/dL (11.4-16.0); Lymphocytes # (A) 2.2 k/uL (1.0-4.8); Lymphocytes % (A) 26 %; MCHC 34.7 g/dL (31.0-37.0); MCV 89.4 fL (80.0-100.0); Mean Platelet Volume 7.2; Monocytes # (A) 0.4 k/uL (0-1.0); Monocytes % (A) 5 %; Neutrophils # (A) 5.6 k/uL (1.3-7.7); Neutrophils % (A) 66 %; Platelet Count 213 k/uL (150-450); RBC 4.55 m/uL (3.80-5.40); RDW 13.9 % (11.5-15.5); WBC 8.5 k/uL (3.8-10.6)
[2017-08-17 17:03] LABS: INR 1.1 (<1.2); Partial Thromboplastin Time 25.3 sec (22.0-30.0); Prothrombin Time 10.9 sec (9.0-12.0)
[2017-08-17 17:06] LABS: ALT 31 U/L (9-52); AST 46 U/L (14-36); Albumin 4.7 g/dL (3.5-5.0); Alkaline Phosphatase 77 U/L (38-126); Anion Gap 12 mmol/L; Blood Urea Nitrogen 15 mg/dL (7-17); Calcium 9.9 mg/dL (8.4-10.2); Carbon Dioxide 27 mmol/L (22-30); Chloride 101 mmol/L (98-107); Glucose 87 mg/dL (74-99); Potassium 3.3 mmol/L (3.5-5.1); Sodium 140 mmol/L (137-145); Total Bilirubin 0.8 mg/dL (0.2-1.3); Total Protein 7.4 g/dL (6.3-8.2)
[2017-08-17 17:19] LABS: Appearance,Urine Clear (Clear); Bacteria,Urine Rare /hpf; Bilirubin,Urine Negative (Negative); Blood,Urine Moderate (Negative); Color,Urine Yellow; Glucose,Urine (UA) Negative (Negative); Ketones,Urine 1+ (Negative); Leukocyte Esterase,Urine Negative (Negative); Mucus,Urine Moderate /hpf; Nitrite,Urine Negative (Negative); PH, Urine 5.5 (5.0-8.0); Protein,Urine 1+ (Negative); RBC,Urine 6 /hpf (0-5); Specific Gravity,Urine 1.025 (1.001-1.035); Squamous Epithelial Cell,Urine <1 /hpf (0-4); WBC,Urine 3 /hpf (0-5)
[2017-08-17] MEDS ORDERED: POTASSIUM CHLORIDE ER 20 MEQ TAB.ER PO STA (17:37)
--- NOTE | 2017-08-17 18:19 | CT ---
EXAMINATION TYPE: CT abdomen pelvis wo con DATE OF EXAM: 08/17/2017 COMPARISON: 11/19/2014 HISTORY: Black tarry stools and hematuria. CT DLP: 686 mGycm Automated exposure control for dose reduction was used. TECHNIQUE: Helical acquisition of images was performed from the lung bases through the pelvis. FINDINGS: There is some mild linear density at the right posterior lung base. There is no pleural effusion. The re is no pericardial effusion. Liver shows no focal defect. Bile ducts are not dilated. Spleen appears normal. There is no pancreati c mass. There are clips from cholecystectomy. There is no adrenal mass. Kidneys have normal size and contour. There is no hydronephrosis. There is no retroperitoneal adenopathy. There is mild wall thickening of the lower descending colon and proxim al sigmoid colon. There is no sign of free air. There is no ascites. Bladder distends smoothly. I see no pelvic mass. There is minimal stranding in the right paracolic gutter. I see no sign of a thicken ed appendix. I see no bony destructive process. There is narrowing of L4-5 disc space. There is no co mpression fracture in the lumbar spine. IMPRESSION: WALL THICKENING OF THE PROXIMAL SIGMOID COLON AND DESCENDING COLON CONSISTENT WITH NONSPECIFIC COLITI S. THIS APPEARS NEW COMPARED TO OLD EXAM. NO EVIDENCE OF RENAL STONE OR OBSTRUCTION.
[2017-08-17 18:58] VITALS: BP 131/63; PULSE 69; RESP 18; TEMP 98.1
== END 2017-08-17 18:57 | disposition home or self-care (01) ==
LOC: EC 15:26
DX: K52.9 Noninfective gastroenteritis and colitis, unspecified (principal); E78.5 Hyperlipidemia, unspecified; I10 Essential (primary) hypertension; G25.81 Restless legs syndrome; F41.9 Anxiety disorder, unspecified; F32.9 Major depressive disorder, single episode, unspecified; Z85.828 Personal history of other malignant neoplasm of skin; Z87.891 Personal history of nicotine dependence; Z79.899 Other long term (current) drug therapy; Z90.49 Acquired absence of other specified parts of digestive tract
CPT/HCPCS: 36415; 74176; 80053; 81001; 82272; 85025; 85610; 85730; 86850; 86900; 86901; 96360; 99285

== ENCOUNTER 2017-12-20 18:22 | Emergency (ER) | payer BC, OTHER ==
[2017-12-20 18:42] VITALS: RESP 16
--- NOTE | 2017-12-20 19:52 | ED ---
Eye Problem HPI - General Chief complaint: Eye Problems Stated complaint: fb left eye Time Seen by Provider: 12/20/17 19:18 Source: patient Mode of arrival: ambulatory Limitations: no limitations - History of Present Illness Initial comments: 61-year-old female with past medical history of hypertension skin cancer presenting today for chief complaint of redness of left inner eye. Patient states that she had recently been getting over a sinus infection. She woke up this morning with redness of the medial aspect of the left eye. Patient states she felt as though the area was itchy and present for evaluation. Patient denies pain in the eye, visual changes, diplopia, eye discharge, headache, foreign body sensation, history of working with wood or grinding metal. Pt does not wear contact lens. pt denies trauma to the eye. Upon arrival pt appears well , comfortable. VS within acceptable limits. - Related Data Home Medications Medication Instructions Recorded Confirmed Gabapentin [Neurontin] 300 mg PO HS 08/08/16 08/17/17 Ibuprofen 400 mg PO DAILY PRN 08/08/16 08/17/17 Rosuvastatin Calcium [Crestor] 40 mg PO HS 08/08/16 08/17/17 Fluticasone Nasal [place] [Flonase 2 spr EA NOSTRIL DAILY PRN 09/29/16 08/17/17 Nasal [place]] DULoxetine HCL [Cymbalta] 60 mg PO DAILY 08/17/17 08/17/17 Lisinopril [Prinivil] 5 mg PO DAILY 08/17/17 08/17/17 Allergies Allergy/AdvReac Type Severity Reaction Status Date / Time No Known Allergies Allergy Verified 12/20/17 18:41 Review of Systems ROS Statement: Those systems with pertinent positive or pertinent negative responses have been documented in the HPI. ROS Other: All systems not noted in ROS Statement are negative. Constitutional: Denies: fever, chills, night sweats Eyes: Denies: eye pain, eye discharge, vision change ENT: Denies: ear pain, throat pain Respiratory: Denies: cough, dyspnea, wheezes, hemoptysis, stridor Cardiovascular: Denies: chest pain, palpitations Endocrine: Denies: fatigue Gastrointestinal: Denies: abdominal pain, nausea, vomiting, diarrhea, constipation Genitourinary: Denies: urgency, dysuria Skin: Denies: rash Neurological: Denies: as per HPI, headache, weakness, numbness, paresthesias, confusion Past Medical History Past Medical History: Cancer, GERD/Reflux, Hyperlipidemia, Hypertension Additional Past Medical History / Comment(s): HX OF SKIN CANCER. HIATAL HERNIA. HX BLOOD IN STOOL. RLS. VARICOSE VEINS. History of Any Multi-Drug Resistant Organisms: None Reported Past Surgical History: Cholecystectomy, Hysterectomy, Orthopedic Surgery Additional Past Surgical History / Comment(s): Skin CA. LT wrist. TUBAL . TMJ, JAW SURGERY. COLONOSCOPY. EGD, bilateral lens implants Past Anesthesia/Blood Transfusion Reactions: Motion Sickness, Postoperative Nausea & Vomiting (PONV) Past Psychological History: Anxiety, Depression Smoking Status: Former smoker Past Alcohol Use History: Occasional Past Drug Use History: None Reported - Past Family History Father Family Medical History: Cancer Additional Family Medical History / Comment(s): PROSTATE CANCER General Exam - General Exam Comments Initial Comments: General: The patient is awake and alert, in no distress, and does not appear acutely ill. Eye: Patient does not wear corrective lenses or contact lenses. Upon inspection of the eyes there is no soft tissue swelling, no lid edema or erythema. No evidence of discharge. +3 pupils are equal, round and reactive to light, extra-ocular movements are intact. No APD No nystagmus. There is a left thigh medial aspect subconjunctival hemorrhage, sparing the limbus. No signs of icterus. Patient showed no signs of photophobia. Slit lamp exam performed, there is no cell and flare. Fluorescein exam revealed no areas of uptake, there is no evidence of foreign body negative Fernando sign. IOP 14 OD, 14 OS. VA 20/30 OD, OS, OU. Cardiovascular: There is a regular rate and rhythm. No murmur, rub or gallop is appreciated. Respiratory: Lungs are clear to auscultation, respirations are non-labored, breath sounds are equal. No wheezes, stridor, rales, or rhonchi. Musculoskeletal: .Radial pulses equal bilaterally 2+. Neurological: A&O x 3. CN II-XII intact, There are no obvious motor or sensory deficits. Coordination appears grossly intact. Speech is normal. Skin: Skin is warm and dry and no rashes or lesions are noted. Psychiatric: Cooperative, appropriate mood & affect, normal judgment. Limitations: no limitations Course Vital Signs 12/20/17 12/20/17 18:37 20:02 Temperature 97.9 F 97.7 F Pulse Rate 83 80 Respiratory 16 16 Rate Blood Pressure 110/59 108/63 O2 Sat by Pulse 98 98 Oximetry Medical Decision Making - Medical Decision Making Giving history of sinusitis, subconjunctival hemorrhage is most likely secondary to increased nausea from coughing, sneezing or blowing nose. Patient denies any trauma. Examination of the eye is unremarkable. No evidence of foreign body. IOP 14. Pt denies pain. At this time feel patient is stable for discharge with ophthalmology follow-up. Patient agrees with plan. Patient was discharged in stable condition. Return parameters discussed in detail patient, patient verbalizes understanding. Case was discussed with prior to d /c who agreed with impression and plan. Disposition Clinical Impression: Subconjunctival hemorrhage of left eye Disposition: HOME SELF-CARE Condition: Good Instructions: Subconjunctival Hemorrhage (ED) Additional Instructions: Please use medication as discussed. Please follow-up with your yarn examiner the next 2-3 days days of symptoms have not improved. Please return to emergency room if the symptoms increase or worsen or for any other concerns. Is patient prescribed a controlled substance at d/c from ED?: No Referrals: Ena Pagan MD [Primary Care Provider] - 1-2 days Addison Fine MD [STAFF PHYSICIAN] - 1-2 days Time of Disposition: 19:52
[2017-12-20 20:03] VITALS: BP 108/63; PULSE 80; TEMP 97.7
== END 2017-12-20 20:03 | disposition home or self-care (01) ==
LOC: EC 18:22
DX: H11.32 Conjunctival hemorrhage, left eye (principal); E78.5 Hyperlipidemia, unspecified; I10 Essential (primary) hypertension; G25.81 Restless legs syndrome; F41.9 Anxiety disorder, unspecified; F32.9 Major depressive disorder, single episode, unspecified; Z85.828 Personal history of other malignant neoplasm of skin; Z87.891 Personal history of nicotine dependence; Z79.899 Other long term (current) drug therapy
CPT/HCPCS: 99283

== ENCOUNTER → 2018-05-04 | Outpatient (CLI) | payer BC, OTHER ==
--- NOTE | 2018-05-04 12:17 | MR ---
EXAMINATION TYPE: MR iac wo/w con DATE OF EXAM: 05/04/2018 COMPARISON: None HISTORY: Vertigo TECHNIQUE: Multiplanar, multisequence images of the brain and brainstem is performed without and with IV contras t, utilizing 5.5 mL intravenous Gadavist . FINDINGS: Diffusion weighted images demonstrate no evidence of a recent infarct or other diffusion ab normality. Mild generalized degenerative change noted. Midline structures demonstrate normal morphol ogy. Partially empty sella turcica. Craniocervical junction maintained. There are abnormal signal seen within the white matter of the left temporal lobe measuring 1.4 cm in the periatrial region. Additional 6 mm white matter lesion in the right frontal lobe. There are addit ional 2-3 small less than 5 mm lesion scattered bilaterally. No mass effect. No midline shift. Changes of chronic sinusitis noted. Nasal septal deviation noted. IMPRESSION: 1. No cerebellopontine angle mass or acoustic schwannoma. 2. Nonspecific white matter changes May be on the basis of remote microvascular ischemia. Demyelinati ng process not excluded correlate clinically. 3. Partially empty sella turcica
== END | disposition home or self-care (01) ==
LOC: RADMRIMAIN 10:04
PROVIDERS: ATTEND Otolaryngology
DX: R90.82 White matter disease, unspecified (principal); R42 Dizziness and giddiness
CPT/HCPCS: 82565; 70553; 36415; A9585

== ENCOUNTER → 2018-11-07 | Outpatient (CLI) | payer BC, OTHER ==
--- NOTE | 2018-11-08 07:52 | CT ---
EXAMINATION TYPE: CT sinus wo con DATE OF EXAM: 11/07/2018 COMPARISON: None HISTORY: 62-year-old female chronic sinusitis CT DLP: 468 mGycm Automated exposure control for dose reduction was used. TECHNIQUE: Noncontrast axial views of the paranasal sinuses were obtained. Coronal reconstructions pe rformed. FINDINGS: PARANASAL SINUSES: There is trace mucosal thickening along the floor of the left maxillary sinus. Otherwise, the fronta l, ethmoid, right maxillary and sphenoid sinuses are clear and well pneumatized. There is no air-fluid level. Reactive berny- osteogenesis is not seen. There is no destruction of the osseous crain of the paranasal sinuses. THE NASAL CAVITY: The osteomeatal complexes are widely patent with suggestion of prior medial maxillary antrectomies. Slight leftward nasal septal deviation. The imaged brain shows some benign basal ganglionic calcifications on the left. The orbits are normal in appearance. Visualized mastoid air cells and middle ear cavities are well pneumatized. Reformatted images confirm above findings. IMPRESSION: There seems to have been prior medial maxillary antrectomies. There is only trace mucosal thickening along the floor of the left maxillary sinus. Slight leftward nasal septal deviation
== END | disposition home or self-care (01) ==
LOC: RADCTMAIN 15:36
PROVIDERS: ATTEND Otolaryngology
DX: J32.9 Chronic sinusitis, unspecified (principal)
CPT/HCPCS: 70486

== ENCOUNTER 2018-11-12 08:57 | Day surgery (SDC) | payer BC, OTHER ==
[2018-11-08 14:53] VITALS: BMI 19.8
[2018-11-12 09:15] VITALS: TEMP 97.9
[2018-11-12] MEDS ORDERED: LACTATED RINGERS 1,000 ML IV ONE (09:20)
[2018-11-12] MEDS ORDERED: DEXAMETHASONE SOD PHOSPHATE 10 MG/ML 1 ML VIAL IV ONE (09:30)
[2018-11-12] MEDS ORDERED: ONDANSETRON 4 MG/2 ML VIAL IVP ONE (09:30)
[2018-11-12] MEDS ORDERED: PROPOFOL 10 MG/ML 20 ML VIAL IV ONE (10:37)
--- NOTE | 2018-11-12 11:21 | P.PCN ---
Date of Procedure: 11/12/18 Description of Procedure: BRIEF HISTORY: Patient is a 62-year-old pleasant female scheduled for an elective colonoscopy as a part of screening for malignant neoplasm of the colon. Patient does report a personal history of colonoscopy a few years ago with polyps removed. No family history of colon cancer. Denies any change in bowel, abdominal pain or blood. PROCEDURE PERFORMED: Colonoscopy. PREOPERATIVE DIAGNOSIS: Screening for malignant neoplasm of the colon. ESTIMATED BLOOD LOSS: Minimal. IV sedation per Anesthesia. PROCEDURE: After informed consent was obtained, the patient, was brought into the endoscopy unit. IV sedation was administered by Anesthesia under continuous monitoring. Digital rectal examination was normal. Initially the Olympus CF-190 flexible video colonoscope was then inserted in the rectum, gradually advanced into the cecum without any difficulty. Careful examination was performed as the scope was gradually being withdrawn. Ileocecal valve and the appendiceal orifice were visualized and appeared normal. Prep was good with some stool noted throughout the colon with some solid components treated with lavage and suction. Mucosa of the cecum, ascending colon, transverse colon, descending colon, sigmoid colon, and rectum appeared normal, with mild internal hemorrhoids with some irritation likely secondary to the endoscopic procedure and a small amount of bleeding from this area noted. Retroflexion was performed in the rectum and no lesions were seen. The patient tolerated the procedure well. IMPRESSION: Normal-appearing colon from rectum to cecum. Mild internal hemorrhoids. RECOMMENDATIONS: Findings of this examination were discussed with the patient and her . Okay to resume diet. Recommendation is for repeat colonoscopy in 5 years given personal history of colon polyps.
[2018-11-12] MEDS ORDERED: SCOPOLAMINE 1.5MG/72HR PATCH TRANSDERM ONE (11:45)
[2018-11-12 12:16] VITALS: RESP 18
[2018-11-12] MEDS ORDERED: LACTATED RINGERS 1,000 ML IV SCH (12:21)
[2018-11-12] MEDS ORDERED: LIDOCAINE 1% 20 ML VIAL (10MG/ML) FOR IV START INTRADERMA PRN (12:21)
[2018-11-12 12:26] VITALS: PULSE 73
[2018-11-12 13:19] VITALS: BP 150/79
== END 2018-11-12 12:48 | disposition home or self-care (01) ==
LOC: ORWHC2ENDO 08:57
PROVIDERS: ATTEND Internal Medicine
DX: Z12.11 Encounter for screening for malignant neoplasm of colon (principal); K64.8 Other hemorrhoids; Z86.010 Personal history of colon polyps; I10 Essential (primary) hypertension; E78.5 Hyperlipidemia, unspecified; Z87.891 Personal history of nicotine dependence; G25.81 Restless legs syndrome; F41.9 Anxiety disorder, unspecified; F32.9 Major depressive disorder, single episode, unspecified; Z79.1 Long term (current) use of non-steroidal anti-inflammatories (NSAID); Z79.899 Other long term (current) drug therapy
CPT/HCPCS: J1100; J2405; J2704; G0105

== ENCOUNTER → 2019-02-08 | Outpatient (CLI) | payer BC, OTHER ==
--- NOTE | 2019-02-08 10:21 | BD ---
EXAMINATION TYPE: Axial Bone Density DATE OF EXAM: 02/08/2019 COMPARISON: 05/01/2012 CLINICAL HISTORY: M 89.9 Height: 63.2 IN Weight: 116 LBS FRAX RISK QUESTIONS: History of Fracture in Adulthood: LT WRIST AGE 58 Secondary Osteoporosis: 3. Menopause before 45: PARTIAL HYST AGE 41 RISK FACTORS HISTORY OF: History of Wrist Fracture: YES LT WRIST AGE 58 Surgery to Wrist (left): YES AGE 58 Family History of Osteoporosis: YES MOTHER Active: YES Diet low in dairy products/other sources of calcium: YES Postmenopausal woman: PARTIAL HYST AGE 41 Take estrogen and/or progesterone medications: NOT NOW How long: TOOK CONTROL FOR 10+ YEARS MEDICATIONS: Additional Medications: HIGH BLOOD PRESSURE MEDS, CHOLESTEROL MEDS, DEPRESSION MEDS EXAM MEASUREMENTS: Bone mineral densitometry was performed using the [employer] System. Bone mineral density as measured about the Lumbar spine is: ----- L1-L4(G/cm2): 0.823 T Score Values are as follows: ----- L2: -3.4 ----- L3: -2.6 ----- L4: -3.0 ----- L1-L4: -3.0 Bone mineral density has: Decreased -1.6% since study of: 05/01/2012 Bone mineral density about the R hip (g/cm2): 0.667 Bone mineral density about the L hip (g/cm2): 0.703 T Score values are as follows: -----R Neck: -2.7 -----L Neck: -2.4 -----R Total: -2.6 -----L Total: -2.4 Bone mineral density has: Decreased -8.2% since study of: 05/01/2012 IMPRESSION: Osteoporosis (T Score less than -2.5). There is increased fracture risk and therapy is usually indicated based on age. Re-Screen 1-2 years. NOTE: T-SCORE=SD OF THE YOUNG ADULT MEAN.
== END | disposition home or self-care (01) ==
LOC: RADBDWWP 08:24
PROVIDERS: ATTEND Family Medicine
DX: Z13.820 Encounter for screening for osteoporosis (principal); M81.8 Other osteoporosis without current pathological fracture
CPT/HCPCS: 77080

== ENCOUNTER → 2019-02-19 | Outpatient (CLI) | payer BC, OTHER ==
--- NOTE | 2019-02-22 10:45 | MM ---
Reason for exam: screening (asymptomatic). Last mammogram was performed 1 year and 7 months ago. History: Patient is postmenopausal. Benign ultrasound-guided core biopsy of the left breast, September 21, 1998. Core biopsy of the left breast. Physical Findings: A clinical breast exam by your physician is recommended on an annual basis and results should be correlated with mammographic findings. MG Screening Mammo w CAD Bilateral CC and MLO view(s) were taken. Prior study comparison: July 13, 2017, bilateral MG screening mammo w CAD. November 09, 2015, mammogram, performed at [facility]. The breast tissue is heterogeneously dense. This may lower the sensitivity of mammography. No significant changes when compared with prior studies. ASSESSMENT: Negative, BI-RAD 1 RECOMMENDATION: Routine screening mammogram of both breasts in 1 year.
== END | disposition home or self-care (01) ==
LOC: RADMAMWWP 10:18
PROVIDERS: ATTEND Family Medicine
DX: Z12.31 Encounter for screening mammogram for malignant neoplasm of breast (principal)
CPT/HCPCS: 77067

== ENCOUNTER → 2019-08-20 | Outpatient (CLI) | payer BC, OTHER ==
[~2019-08-20] MED LIST changes: -ACETAMINOPHEN IVPB ONE; -DEXAMETHASONE SOD PHOSPHATE 10 MG/ML 1 ML VIAL IV ONE; -HEPARIN SODIUM,PORCINE 5,000 UNIT/ML 1 ML VIAL SQ ONE; -HYDROmorphone 1 MG/ML 1 ML SYRINGE IVP PRN; -LACTATED RINGERS 1,000 ML IV SCH; -MIDAZOLAM 2 MG/2 ML VIAL IV PRN; -ONDANSETRON 4 MG/2 ML VIAL IVP ONE; -SCOPOLAMINE 1.5MG/72HR PATCH TRANSDERM ONE; -SCOPOLAMINE 1.5MG/72HR PATCH TRANSDERM STA; +SODIUM CHLORIDE 0.9% 500 ML 500 ML in EMPTY BAG 1 BAG IV PRN; +ZOLEDRONIC ACID 5 MG in SODIUM CHLORIDE 0.9% 100 ML IV NR; -ceFAZolin 2 GM in SODIUM CHLORIDE 0.9% 100 ML IVPB ONE
[2019-08-20 13:45] VITALS: BP 143/81; PULSE 69; RESP 16; TEMP 98.5
== END | disposition home or self-care (01) ==
LOC: PROCWHC3 13:17
PROVIDERS: ATTEND Nurse Practitioner
DX: M81.0 Age-related osteoporosis without current pathological fracture (principal)
CPT/HCPCS: 96365; J3489

== ENCOUNTER → 2019-10-09 | Outpatient (CLI) | payer BC, OTHER ==
--- NOTE | 2019-10-09 15:54 | XR ---
EXAMINATION TYPE: XR KUB DATE OF EXAM: 10/09/2019 Comparison: 11/26/2014 Clinical History: 63-year-old female left-sided kidney stone N20.0 Findings: There is a 1.3 cm calcification projecting at the left kidney. Cholecystectomy clips. Stable phleboli ths in the left side of the pelvis and 2 tiny phleboliths in the right side of the pelvis. Levoconvex scoliosis. Nonobstructive bowel gas pattern. Impression: 1.3 cm left renal calculus. Stable phleboliths in the pelvis, left greater than right.
== END | disposition home or self-care (01) ==
LOC: RADXRMAIN 14:13
PROVIDERS: ATTEND Urology
DX: N20.0 Calculus of kidney (principal)
CPT/HCPCS: 74018

== ENCOUNTER 2019-10-14 07:50 | Day surgery (SDC) | payer BC, OTHER ==
[2019-10-10 12:09] VITALS: BMI 19.5
[~2019-10-14 07:50] MED LIST changes: +LACTATED RINGERS 1,000 ML IV SCH; -SODIUM CHLORIDE 0.9% 500 ML 500 ML in EMPTY BAG 1 BAG IV PRN; -ZOLEDRONIC ACID 5 MG in SODIUM CHLORIDE 0.9% 100 ML IV NR
[2019-10-14 08:23] VITALS: TEMP 97.3
[2019-10-14] MEDS ORDERED: LIDOCAINE 1% (10MG/ML) FOR IV START INTRADERMA ONE (08:37)
[2019-10-14] MEDS ORDERED: ONDANSETRON 4 MG/2 ML VIAL ONE (09:16)
[2019-10-14] MEDS ORDERED: PROPOFOL 10 MG/ML 20 ML VIAL IV ONE (09:16)
[2019-10-14] MEDS ORDERED: fentaNYL (PF) 50 MCG/ML 2 ML AMP ONE (09:16)
[2019-10-14] MEDS ORDERED: MIDAZOLAM 2 MG/2 ML VIAL ONE (09:16)
--- NOTE | 2019-10-14 09:34 | XR ---
EXAMINATION TYPE: XR KUB DATE OF EXAM: 10/14/2019 Comparison: 10/09/2019 Clinical History: 63 year-old female left Renal Calculi, Pre-op Findings: Cholecystectomy clips. Nonobstructive bowel gas pattern. Mild stool in the pelvis. 1.3 cm left renal calculus. Multiple fluid levels in the pelvis especially on the left. Bowel content obscures most of the right renal shadow. Impression: Redemonstrated 1.3 cm left renal calculus.
--- NOTE | 2019-10-14 09:49 | P.OP ---
Date of Procedure: 10/14/19 Preoperative Diagnosis: Left renal stone Postoperative Diagnosis: Same Procedure(s) Performed: Shockwave lithotripsy, 1750 shocks at energy level IV Anesthesia: MAC Surgeon: Phil Claros Pathology: none sent Condition: stable Disposition: PACU Indications for Procedure: The patient is 63. She has a 9 mm UPJ stone. She come for shockwave lithotripsy on the left side Description of Procedure: The patient is brought to the operating suite. She is given IV sedation. She's placed on the lithotripsy table. The stone was seen in 2 views of fluoroscopy. A total of 1750 shocks at energy level IV administered to the stone and its fragments. The stone breaks up nicely. Then the procedure the patient's awake and returned recovery in good condition. She tolerated procedure well be discharged home upon recovery.
[2019-10-14 10:17] VITALS: BP 151/80; PULSE 55; RESP 15
--- NOTE | 2019-10-25 15:39 | P.GSHP ---
History of Present Illness H&P Date: 10/14/19 Chief Complaint: left renal calculus The patient is a 63-year-old female who developed the abrupt onset of left upper quadrant and epigastric pain on 10/04/2019. The pain worsened and she was seen in the [facility] emergency room on 10/07/2019. Noncontrast co mputed tomography scan of the abdomen and pelvis identified a 10-11 mm calculus in the left renal pelvis at the ureteropelvic junction which appeared to be the source of her pain. The patient was seen by me on October 08. A KUB was obtained and the calculus was visible. I discussed treatment options including observation, ESWL, ureteroscopy with lithotripsy and percutaneous nephrostolithotomy. The patient has elected to proceed with ESWL for treatment. The patient has no previous history of urolithiasis. A computed tomography scan on 08/17/2017 did not show the presence of a calculus. - Constitutional Constitutional: Denies chills, Denies fever - Cardiovascular Cardiovascular: Denies chest pain, Denies palpitations, Denies shortness of breath - Respiratory Respiratory: Denies cough, Denies wheezing - Gastrointestinal Gastrointestinal: Reports as per HPI Past Medical History Past Medical History: GERD/Reflux, Hyperlipidemia, Hypertension, Musculoskeletal Disorder Additional Past Medical History / Comment(s): Hx RLS. Mild Varicose Veins. Osteoporosis - gets yearly infusion. Kidney stone x2. History of Any Multi-Drug Resistant Organisms: None Reported Past Surgical History: Cholecystectomy, Hernia Repair, Hysterectomy, Orthopedic Surgery Additional Past Surgical History / Comment(s): ORIF LT wrist. TUBAL . TMJ, JAW SURGERY. COLONOSCOPY. EGD, Cataracts removed w/ bilateral lens implants. Hiatal hernia repair. Past Anesthesia/Blood Transfusion Reactions: Motion Sickness, Postoperative Nausea & Vomiting (PONV) Smoking Status: Former smoker - Past Family History Father Family Medical History: Cancer Additional Family Medical History / Comment(s): PROSTATE CANCER Medications and Allergies Home Medications Medication Instructions Recorded Confirmed Type Ibuprofen 400 mg PO DIRECTED PRN 08/08/16 10/10/19 History Rosuvastatin Calcium [Crestor] 40 mg PO DAILY 08/08/16 10/14/19 History Fluticasone Nasal [place] [Flonase 2 spr EA NOSTRIL DAILY PRN 09/29/16 10/14/19 History Nasal [place]] lisinopriL [Prinivil] 10 mg PO DAILY 08/17/17 10/10/19 History Escitalopram [Lexapro] 5 mg PO DAILY 10/10/19 10/14/19 History Sinus Congestion Rx (Unknown) 1 tab PO DIRECTED PRN 10/10/19 10/14/19 History Tamsulosin [Flomax] 0.4 mg PO DAILY 10/10/19 10/14/19 History HYDROcodone/APAP 5-325MG [[place] 1 tab PO Q4HR PRN #10 tab 10/14/19 Rx 5-325] Allergies Allergy/AdvReac Type Severity Reaction Status Date / Time No Known Allergies Allergy Verified 10/14/19 08:14 Surgical - Exam Vital Signs Temp Pulse Resp BP Pulse Ox 97.3 F L 54 L 16 146/67 99 10/14/19 08:21 10/14/19 08:21 10/14/19 08:21 10/14/19 08:21 10/14/19 08:21 - General well developed, well nourished, no pain - ENT no hearing loss - Neck no masses, no lymphadectomy - Respiratory normal respiratory effort - Abdomen Abdomen: soft, non tender, no organomegaly Assessment and Plan (1) Calculus of left kidney Narrative/Plan: The patient will undergo extracorporeal shockwave lithotripsy of her left renal calculus performed by Dr. Claros. She is aware of the operative risks which include anesthesia, hematuria or perinephric bleeding, inability to fragment the calculus and ureteral obstruction from a calculus fragments. Status: Acute Code(s): N20.0 - CALCULUS OF KIDNEY SNOMED Code(s): 48363152
== END 2019-10-14 11:01 | disposition home or self-care (01) ==
LOC: ORWHC2ENDO 07:50
PROVIDERS: ATTEND Urology
DX: N20.1 Calculus of ureter (principal); I10 Essential (primary) hypertension; E78.5 Hyperlipidemia, unspecified; F41.9 Anxiety disorder, unspecified; M19.90 Unspecified osteoarthritis, unspecified site; K21.9 Gastro-esophageal reflux disease without esophagitis; Z79.899 Other long term (current) drug therapy; Z90.710 Acquired absence of both cervix and uterus; Z90.49 Acquired absence of other specified parts of digestive tract; Z98.890 Other specified postprocedural states
CPT/HCPCS: 74018; 50590; J2250; J2405; J3010; J2704

== ENCOUNTER → 2019-10-22 | Outpatient (CLI) | payer BC, OTHER ==
--- NOTE | 2019-10-22 14:16 | XR ---
EXAMINATION TYPE: XR KUB DATE OF EXAM: 10/22/2019 HISTORY: Pain Comparison: None.Single KUB is submitted for interpretation. Findings: Right renal calculi: None Visualized. Right ureteral calculi: None Visualized. Left renal calculi: Previously noted left-sided renal calculus is not clearly visualized this time. Left ureteral calculi: None Visualized. Pelvic calcifications: Pelvic phleboliths are noted to be in place. Bowel gas pattern is unremarkable. No free air. No mass effects. IMPRESSION: 1. Previously noted left-sided renal calculus is not clearly visualized this time.
== END | disposition home or self-care (01) ==
LOC: RADXRMAIN 13:31
PROVIDERS: ATTEND Urology
DX: N20.0 Calculus of kidney (principal)
CPT/HCPCS: 74018

== ENCOUNTER → 2020-02-13 | Outpatient (CLI) | payer BC, OTHER | END | disposition home or self-care (01) | LOC: LABWHC1 16:08 | PROVIDERS: ATTEND Nurse Practitioner | DX: U07.1 COVID-19 (principal); Z20.828 Contact with and (suspected) exposure to other viral communicable diseases; J98.01 Acute bronchospasm | CPT/HCPCS: 87635; C9803 ==

== ENCOUNTER → 2021-07-06 | Outpatient (CLI) | payer BC, OTHER ==
--- NOTE | 2021-07-06 22:20 | BD ---
EXAMINATION TYPE: Axial Bone Density DATE OF EXAM: 07/06/2021 CLINICAL HISTORY: 65 years year old Female. ICD-10 CODE: M81.0 Osteoporosis Height: 5 FT 3 IN Weight: 109 FRAX RISK QUESTIONS: Alcohol (3 or more units per day): NO Family History (Parent hip fracture): NO Glucocorticoids (More than 3mos): NO (Ex: prednisone, prednisolone, methylprednisolone, dexamethasone, and hydrocortisone). History of Fracture in Adulthood: YES Secondary Osteoporosis: 1. Type 1 Diabetes: NO 2. Hyperthyroidism: NO 3. Menopause before 45: NO 4. Malnutrition: NO 5. Chronic liver disease: NO Rheumatoid Arthritis: NO Current Tobacco Use: NO RISK FACTORS HISTORY OF: History of Wrist Fracture: LEFT WRIST When: AGE 58 Surgery to Spine/Hip(right/left)/Wrist (right/left): LEFT WRIST When: AGE 58 Family History of Osteoporosis: YES Active: YES Diet low in dairy products/other sources of calcium: NO Postmenopausal woman: YES Take estrogen and/or progesterone medications: NO Lost more than 2 inches in height since high school: NO Frequent falls: NO Poor Health: GOOD Hyperparathyroidism: NO Adrenal Insufficiency: NO MEDICATIONS: Additional Medications: BLOOD PRESSURE MEDS, CHOLESTEROL MEDS, ANTI DEPRESSANT ,CLARITAN Additional History: EXAM MEASUREMENTS: Bone mineral densitometry was performed using the [employer]. Bone mineral density as measured about the Lumbar spine is: ----- L1-L4(G/cm2): 0.847 T Score Values are as follows: ----- L1: -2.6 ----- L2: -2.9 ----- L3: -2.6 ----- L4: -3.1 ----- L1-L4: -2.8 Bone mineral density has: INCREASED 1.3 % since study of: 2019 Bone mineral density about the R hip (g/cm2): 0.657 Bone mineral density about the L hip (g/cm2): 0.682 T Score values are as follows: -----R Neck: -2.7 -----L Neck: -2.6 -----R Total: -2.8 -----L Total: -2.6 Bone mineral density has: DECREASED -3.2 % since study of: 2019 FRAX%s: The graph provided illustrates a 20.3 % chance for a major osteoporotic fx and a 5.4 % chance for the hips probability for fx in 10 years time. IMPRESSION: Osteoporosis (T Score less than -2.5). There is increased fracture risk and therapy is usually indicated based on age. Re-Screen 1-2 years. NOTE: T-SCORE=SD OF THE YOUNG ADULT MEAN.
== END | disposition home or self-care (01) ==
LOC: RADBDWWP 07:14
PROVIDERS: ATTEND Family Medicine
DX: M81.0 Age-related osteoporosis without current pathological fracture (principal)
CPT/HCPCS: 77080

== ENCOUNTER → 2021-08-26 | Outpatient (CLI) | payer BC, OTHER ==
[~2021-08-26] MED LIST changes: -LACTATED RINGERS 1,000 ML IV SCH; +SODIUM CHLORIDE 0.9% 500 ML 500 ML in EMPTY BAG 1 BAG IV PRN; +ZOLEDRONIC ACID 5 MG in SODIUM CHLORIDE 0.9% 100 ML IV NR
[2021-08-26 11:10] VITALS: BP 138/82; PULSE 54; RESP 18; TEMP 97.8
== END ==
LOC: PROCWHC3 10:56
PROVIDERS: ATTEND Family Medicine
DX: M81.0 Age-related osteoporosis without current pathological fracture (principal); Z87.891 Personal history of nicotine dependence
CPT/HCPCS: 96365; J3489

== ENCOUNTER 2022-09-10 09:36 | Observation (INO) | payer OTHER ==
[2022-09-10] MEDS ORDERED: SODIUM CHLORIDE 0.9% 1,000 ML IV STA (10:11)
[2022-09-10] MEDS ORDERED: METOCLOPRAMIDE 5 MG/ML 2 ML VIAL IVP STA (10:11)
[2022-09-10 10:23] LABS: Basophils % (A) 0 %; Eosinophils # (A) 0.1 k/uL (0-0.7); Eosinophils % (A) 1 %; HCT 40.4 % (34.0-46.0); HGB 13.6 gm/dL (11.4-16.0); Lymphocytes # (A) 1.1 k/uL (1.0-4.8); Lymphocytes % (A) 16 %; MCH 30.9 pg (25.0-35.0); MCHC 33.7 g/dL (31.0-37.0); MCV 91.8 fL (80.0-100.0); Mean Platelet Volume 8.4; Monocytes # (A) 0.3 k/uL (0-1.0); Monocytes % (A) 4 %; Neutrophils # (A) 5.6 k/uL (1.3-7.7); Neutrophils % (A) 77 %; Platelet Count 171 k/uL (150-450); RDW 12.7 % (11.5-15.5); WBC 7.3 k/uL (3.8-10.6)
--- NOTE | 2022-09-10 10:27 | ED ---
General Adult HPI - General Chief complaint: Dizziness Stated complaint: Dizziness,Headache Time Seen by Provider: 09/10/22 10:02 Source: patient Mode of arrival: EMS Limitations: no limitations - History of Present Illness Initial comments: Dictation was produced using [employer] dictation software. please excuse any grammatical, word or spelling errors. Chief Complaint: 66-year-old female presents emergency Department with dizziness History of Present Illness: Patient is 66-year-old female she has past medical history of hypercholesterolemia, hypertension. She presents to the ER for 2 weeks of dizziness. Patient states that her symptoms. Be more severe. States that it's mostly positional but sometimes her symptoms are unrelenting and constant despite sitting still. She does report a sensation of room spinning. Does complain of nausea. No vomiting. She does complain of a mild frontal headache. Patient followed up with her primary care doctor regarding this she was prescribed Bactrim for possible sinus symptoms. The ROS documented in this emergency department record has been reviewed and confirmed by me. Those systems with pertinent positive or negative responses have been documented in the HPI. All other systems are other negative and/or noncontributory. - Related Data Home Medications Medication Instructions Recorded Confirmed Ibuprofen 400 mg PO DIRECTED PRN 08/08/16 08/26/21 Rosuvastatin Calcium [Crestor] 40 mg PO DAILY 08/08/16 08/26/21 Fluticasone Nasal [place] [Flonase 2 spr EA NOSTRIL DAILY PRN 09/29/16 08/26/21 Nasal [place]] lisinopriL [Prinivil] 10 mg PO DAILY 08/17/17 08/26/21 Escitalopram [Lexapro] 5 mg PO DAILY 10/10/19 08/26/21 Sinus Congestion Rx (Unknown) 1 tab PO DIRECTED PRN 10/10/19 08/26/21 Tamsulosin [Flomax] 0.4 mg PO DAILY 10/10/19 08/26/21 Previous Rx's Medication Instructions Recorded HYDROcodone/APAP 5-325MG [[place] 1 tab PO Q4HR PRN #10 tab 10/14/19 5-325] Allergies Allergy/AdvReac Type Severity Reaction Status Date / Time No Known Allergies Allergy Verified 09/10/22 09:43 Review of Systems ROS Statement: Those systems with pertinent positive or pertinent negative responses have been documented in the HPI. ROS Other: All systems not noted in ROS Statement are negative. Past Medical History Past Medical History: GERD/Reflux, Hyperlipidemia, Hypertension, Musculoskeletal Disorder Additional Past Medical History / Comment(s): Hx RLS. Mild Varicose Veins. Osteoporosis - gets yearly infusion. Kidney stone x2. History of Any Multi-Drug Resistant Organisms: None Reported Past Surgical History: Cholecystectomy, Hernia Repair, Hysterectomy, Orthopedic Surgery Additional Past Surgical History / Comment(s): ORIF LT wrist. TUBAL . TMJ, JAW SURGERY. COLONOSCOPY. EGD, Cataracts removed w/ bilateral lens implants. Hiatal hernia repair. Past Anesthesia/Blood Transfusion Reactions: Motion Sickness, Postoperative Nausea & Vomiting (PONV) Past Psychological History: Anxiety, Depression Smoking Status: Former smoker Past Alcohol Use History: Occasional Past Drug Use History: Marijuana - Past Family History Father Family Medical History: Cancer Additional Family Medical History / Comment(s): PROSTATE CANCER General Exam - General Exam Comments Initial Comments: PHYSICAL EXAM: General Impression: Alert and oriented x3, acute distress secondary to vertigo HEENT: Normocephalic atraumatic, extra-ocular movements intact, pupils equal and reactive to light bilaterally, mucous membranes moist. Cardiovascular: Heart regular rate and rhythm Chest: Able to complete full sentences, no retractions, no tachypnea Abdomen: abdomen soft, non-tender, non-distended, no organomegaly Musculoskeletal: Pulses present and equal in all extremities, no peripheral edema Motor: no focal deficits noted Neurological: CN II-XII grossly intact, no focal motor or sensory deficits noted, right beating nystagmus. No direction changing nystagmus, no rotatory or vertical nystagmus, HINTS exam otherwise negative Skin: Intact with no visualized rashes Psych: Normal affect and mood Limitations: no limitations Course Vital Signs 09/10/22 09:40 Temperature 97.6 F Pulse Rate 64 Respiratory 16 Rate Blood Pressure 139/83 O2 Sat by Pulse 100 Oximetry EKG Findings - EKG Comments: EKG Findings:: My EKG interpretation: Ventricular rate 63, sinus rhythm,. 162, QRS 79, QTc 432. No MA prolongation, no QTC prolongation, no ST or T-wave changes noted. Overall, this EKG is unremarkable Medical Decision Making - Medical Decision Making Was pt. sent in by a medical professional or institution (, PA, TUBULAR SPLITTING MACHINE TENDER, urgent care, hospital, or usp...) When possible be specific @ -No Did you speak to anyone other than the patient for history (EMS, parent, family, police, friend...)? What history was obtained from this source @ -No Did you review nursing and triage notes (agree or disagree)? Why? @ -I reviewed and agree with nursing and triage notes Were old charts reviewed (outside hosp., previous admission, EMS record, old EKG, old radiological studies, urgent care reports/EKG's, usp records)? Report findings @ -No old charts were reviewed Differential Diagnosis (chest pain, altered mental status, abdominal pain women, abdominal pain men, vaginal bleeding, musculoskeletal, weakness, fever, dyspnea, syncope, headache, dizziness, GI bleed, back pain, seizure, CVA, palpatations, mental health)? @ -Differential Dizziness: Benign paroxysmal positional Vertigo, Menieres disease, otitis media, acoustic neuroma, vertebrobasilar insufficiency, cerebellar stroke, encephalitis, hypovolemic, arrhythmia, coronary artery syndrome, anemia, this is not meant to be an all-inclusive list EKG interpreted by me (3pts min.). @ -See above X-rays interpreted by me (1pt min.). @ -None done CT interpreted by me (1pt min.). @ -CT brain and CT angiography of the head and neck shows no acute processes U/S interpreted by me (1pt. min.). @ -None done What testing was considered but not performed or refused? (CT, X-rays, U/S, labs)? Why? @ -None What meds were considered but not given or refused? Why? @ -None Did you discuss the management of the patient with other professionals (professionals i.e. , PA, TUBULAR SPLITTING MACHINE TENDER, lab, RT, psych nurse, director of social services, cement sprayer helper, teacher, ship officer, correctional case manager)? Give summary @ -Labs imaging discussed with Dr. Cavazos for admission Was smoking cessation discussed for >3mins.? @ -No Was critical care preformed (if so, how long)? @ -No Were there social determinants of health that impacted care today? How? (Homelessness, low income, unemployed, alcoholism, drug addiction, transportation, low edu. Level, literacy, decrease access to med. care, [place] [facility], rehab)? @ -No Was there de-escalation of care discussed even if they declined (Discuss DNR or withdrawal of care, Hospice)? DNR status @ -No What co-morbidities impacted this encounter? (DM, HTN, Smoking, COPD, CAD, Cancer, CVA, ARF, Chemo, Hep., AIDS, mental health diagnosis, sleep apnea, morbid obesity)? @ -None Was patient admitted / discharged? Hospital course, mention meds given and route, prescriptions, significant lab abnormalities, going to OR and other pertinent info. @ -66-year-old female presents emergency department for persistent vertiginous symptoms. Vital signs upon arrival are within acceptable limits. Patient has features of BPPV but also features of central cause of vertigo. Patient treated with improvement of symptoms however she still symptomatic. Imaging studies are negative. Labs are unremarkable. Clinical presentation suspicious for central cause of vertigo. She'll be admitted with consultation to neurology Undiagnosed new problem with uncertain prognosis? @ -No Drug Therapy requiring intensive monitoring for toxicity (Heparin, Nitro, Insulin, Cardizem)? @ -No Were any procedures done? @ -No Diagnosis/symptom? Acute, or Chronic, or Acute on Chronic? Uncomplicated (without systemic symptoms) or Complicated (systemic symptoms)? @ -1. Vertigo Side effects of treatment? @ -No Exacerbation, Progression, or Severe Exacerbation? @ -No Poses a threat to life or bodily function? How? (Chest pain, [place], [place], pneumonia, PE, COPD, DKA, ARF, appy, cholecystitis, CVA, Diverticulitis, Homicidal, Suicidal, threat to staff... and all critical care pts) @ -yes - Lab Data Result diagrams: 09/10/22 10:12 09/10/22 10:12 Lab Results 09/10/22 09/10/22 09/10/22 Range/Units 10:12 10:12 10:12 WBC 7.3 (3.8-10.6) k/uL RBC 4.40 (3.80-5.40) m/uL Hgb 13.6 (11.4-16.0) gm/dL Hct 40.4 (34.0-46.0) % MCV 91.8 (80.0-100.0) fL MCH 30.9 (25.0-35.0) pg MCHC 33.7 (31.0-37.0) g/dL RDW 12.7 (11.5-15.5) % Plt Count 171 (150-450) k/uL MPV 8.4 Neutrophils % 77 % Lymphocytes % 16 % Monocytes % 4 % Eosinophils % 1 % Basophils % 0 % Neutrophils # 5.6 (1.3-7.7) k/uL Lymphocytes # 1.1 (1.0-4.8) k/uL Monocytes # 0.3 (0-1.0) k/uL Eosinophils # 0.1 (0-0.7) k/uL Basophils # 0.0 (0-0.2) k/uL PT 10.4 (9.0-12.0) sec INR 1.0 (<1.2) APTT 23.0 (22.0-30.0) sec Sodium 136 L (137-145) mmol/L Potassium 4.2 (3.5-5.1) mmol/L Chloride 106 (98-107) mmol/L Carbon Dioxide 20 L (22-30) mmol/L Anion Gap 10 mmol/L BUN 16 (7-17) mg/dL Creatinine 0.82 (0.52-1.04) mg/dL Est GFR (CKD-EPI)AfAm 88 (>60 ml/min/1.73 sqM) Est GFR (CKD-EPI)NonAf 76 (>60 ml/min/1.73 sqM) Glucose 106 H (74-99) mg/dL Calcium 9.2 (8.4-10.2) mg/dL Disposition Clinical Impression: Vertigo Disposition: ADMITTED IP TO THIS HOSP Condition: Fair Referrals: Ena Pagan MD [Primary Care Provider] - 1-2 days Decision Time: 12:30
[2022-09-10 10:32] LABS: African American GFR (CKD) 88 (>60 ml/min/1.73 sqM); Anion Gap 10 mmol/L; Blood Urea Nitrogen 16 mg/dL (7-17); Calcium 9.2 mg/dL (8.4-10.2); Carbon Dioxide 20 mmol/L (22-30); Chloride 106 mmol/L (98-107); Glucose 106 mg/dL (74-99); Non-African American GFR(CKD) 76 (>60 ml/min/1.73 sqM); Potassium 4.2 mmol/L (3.5-5.1); Sodium 136 mmol/L (137-145)
[2022-09-10 10:33] LABS: Prothrombin Time 10.4 sec (9.0-12.0)
--- NOTE | 2022-09-10 11:31 | CT ---
EXAMINATION TYPE: CT brain wo con CT DLP: 1121.9 mGycm, Automated exposure control for dose reduction was used. DATE OF EXAM: 09/10/2022 11:01 AM COMPARISON: 11/07/2016. CLINICAL INDICATION:Female, 66 years old with history of vertigo x 12 days TECHNIQUE: Brain: Axial CT images of the brain were obtained with coronal and sagittal reformats created and rev iewed. Contrast used: None. Oral contrast used: None. FINDINGS: Brain: Extra-axial spaces: No abnormal extra-axial fluid collections. Ventricular system: Within normal limits Cerebral parenchyma: No acute intraparenchymal hemorrhage or mass effect. The aguilra-white junction is well differentiated. Cerebellum: Unremarkable. Mass effect: No evidence of midline shift. Intracranial vasculature: Atherosclerotic calcifications of the intracranial vessels. Soft tissues: Normal. Calvarium/osseous structures: No depressed skull fracture. Paranasal sinuses and mastoid air cells: Mild scattered paranasal sinus disease. Visualized orbits: Bilateral aphakia IMPRESSION: No acute intracranial process.
--- NOTE | 2022-09-10 11:36 | CT ---
EXAMINATION TYPE: CT angio head neck CT DLP: 345.9 mGycm, Automated exposure control for dose reduction was used. DATE OF EXAM: 09/10/2022 11:28 AM COMPARISON: CT same day. CLINICAL INDICATION:Female, 66 years old with history of neurologic deficit; PHH, Vertigo since August 29, 2022 TECHNIQUE: Axially acquired helical CT angiogram of the head and neck was obtained with contrast. Axi al images are supplemented with 3D reconstructions [facility] NASCET criteria used. Contrast used:65 ml mL of Isovue 370 without and with IV Contrast, Oral contrast used: None. FINDINGS: CTA HEAD: No evidence of acute intracranial hemorrhage, mass effect, or midline shift. The ventricles, sulci, a nd cisterns are unremarkable. The visualized portions of the internal carotid arteries, middle cerebral arteries, anterior cerebral arteries, and posterior cerebral arteries are patent. The basilar and vertebral arteries are patent. CTA NECK: Right Carotid System: The common carotid artery and external carotid artery are patent. The carotid bifurcation demonstrate s no evidence of hemodynamically significant stenosis. The remaining portions of the internal carotid artery demonstrate normal size without significant narrowing. Left Carotid System: The common carotid artery and external carotid artery are patent. The carotid bifurcation demonstrate s no evidence of hemodynamically significant stenosis. The remaining portions of the internal carotid artery demonstrate normal size without significant narrowing. Vertebral arteries are patent without evidence hemodynamically significant stenosis. There is a three-vessel aortic arch. The origins of the great vessels are patent. No evidence of hemo dynamically significant stenosis. Common origin of the left common carotid artery and brachycephalic trunk. Upper thorax: IMPRESSION: 1. No evidence of dissection of the cervical internal carotid arteries or vertebral arteries or any e vidence of significant stenosis at the carotid bifurcations. 2. No evidence of intracranial high-grade stenosis or intracranial aneurysm.
[2022-09-10] MEDS ORDERED: NALOXONE 0.4 MG/ML 1 ML VIAL IV PRN (12:41)
[2022-09-10] MEDS ORDERED: ASPIRIN 81 MG PO STA (12:45)
[2022-09-10] MEDS: SODIUM CHLORIDE 0.9% 1,000 ML IV SCH (13:33)
[2022-09-10] MEDS ORDERED: ONDANSETRON 4 MG/2 ML VIAL IVP PRN (16:06)
[2022-09-10] MEDS ORDERED: ACETAMINOPHEN TAB 500 MG TAB PO PRN (16:07)
[2022-09-10] MEDS: MECLIZINE 25 MG TAB PO SCH ×2 (17:09→20:47)
[2022-09-10] MEDS: hydroCHLOROthiazide 12.5 MG CAP PO SCH (17:56)
[2022-09-11] MEDS: MECLIZINE 25 MG TAB PO SCH ×3 (08:47→21:32)
[2022-09-11] MEDS: hydroCHLOROthiazide 12.5 MG CAP PO SCH (08:47)
--- NOTE | 2022-09-11 10:23 | US ---
EXAMINATION TYPE: US carotid duplex BILAT DATE OF EXAM: 09/11/2022 COMPARISON: CTA CLINICAL INDICATION: Female, 66 years old with history of dizziness; Dizziness TECHNIQUE: Carotid duplex ultrasound examination. Indirect Doppler criteria was utilized. FINDINGS: EXAM MEASUREMENTS: RIGHT: Peak Systolic Velocity (PSV) cm/sec ----- Right CCA: 56.2 ----- Right ICA: 83.8 ----- Right ECA: 67.3 ICA/CCA ratio: 1.5 RIGHT: End Diastole cm/sec ----- Right CCA: 17.8 ----- Right ICA: 33.4 ----- Right ECA: 13.4 LEFT: Peak Systolic Velocity (PSV) cm/sec ----- Left CCA: 53.7 ----- Left ICA: 85.3 ----- Left ECA: 70.9 ICA/CCA ratio: 1.6 LEFT: End Diastole cm/sec ----- Left CCA: 18.4 ----- Left ICA: 36.5 ----- Left ECA: 10.8 VERTEBRALS (direction of flow): Right Vertebral: Antegrade Left Vertebral: Antegrade Rhythm: Normal RACING MANAGER NOTES: No significant stenosis seen Grayscale images: Mild atherosclerotic plaque and calcification at the bifurcations. IMPRESSION: No hemodynamically significant internal carotid artery stenosis on either side. Criteria for Assigning % of Stenosis / Diameter reduction (Estimation based on the indirect measurements of the internal carotid artery velocities (ICA PSV). 1. Normal (no stenosis)=ICA PSV < 125 cm/s: ratio < 2.0: ICA EDV<40 cm/s. 2. Less than 50% stenosis=ICA PSV < 125 cm/s: ratio < 2.0: ICA EDV<40 cm/s. 3. 50 to 69% stenosis=ICA PSV of 125 to 230 cm/s: ration 2.0 ? 4.0: ICA EDV 40-100 cm/s. 4. Greater than 70% stenosis to near occlusion= ICA PSV > 230 cm/s: ratio > 4.0: ICA EDV > 100 cm/s. 5. Near occlusion= ICA PSV velocities may be low or undetectable: variable ratio and ICA EDV. 6. Total occlusion=unable to detect flow.
--- NOTE | 2022-09-11 10:30 | P.HPIM ---
History of Present Illness H&P Date: 09/11/22 Chief Complaint: Dizziness This is a 66-year-old female patient of Dr. Pagan who presented to ER with concerns of dizziness that has lasted 2 weeks. Patient reports that she's had this episode previously performed was treated with antibiotics for sinus issues in resolved but this time the symptoms presented increasingly worse. Patient has a past medical history of GERD, hyperlipidemia, hypertension anxiety and depression. Head CT completed showing no acute intracranial process. CTA showing no hemodynamically significant internal carotid artery stenosis on either side. EKG showing normal sinus rhythm. Lab work unremarkable. Vital signs temp 98.2, heart rate 68, respiratory rate 17, blood pressure 141/76 with a pulse ox of 95% on room air. Patient started on Antivert along with hydrochlorothiazide per neurology services 2-D echo has been ordered. This time patient does report improvement. Patient denies chest pain. Patient denies nausea vomiting or diarrhea. Patient denies any urinary burning or frequency Review of Systems Please refer to HPI otherwise unremarkable Past Medical History Past Medical History: GERD/Reflux, Hyperlipidemia, Hypertension, Musculoskeletal Disorder Additional Past Medical History / Comment(s): Hx RLS. Mild Varicose Veins. O steoporosis - gets yearly infusion. Kidney stone x2. History of Any Multi-Drug Resistant Organisms: None Reported Past Surgical History: Cholecystectomy, Hernia Repair, Hysterectomy, Orthopedic Surgery Additional Past Surgical History / Comment(s): ORIF LT wrist. TUBAL . TMJ, JAW SURGERY. COLONOSCOPY. EGD, Cataracts removed w/ bilateral lens implants. Hiatal hernia repair. cyst removed from left hand. Past Anesthesia/Blood Transfusion Reactions: Motion Sickness, Postoperative Bib sea & Vomiting (PONV) Past Psychological History: Anxiety, Depression Additional Psychological History / Comment(s): MILD Smoking Status: Former smoker Past Alcohol Use History: Occasional Additional Past Alcohol Use History / Comment(s): QUIT SMOKING 1986, began smoking age 18, 1 ppd. Past Drug Use History: Marijuana Additional Drug Use History / Comment(s): marijuana use in past. - Past Family History Father Family Medical History: Cancer, Diabetes Mellitus, Hypertension Additional Family Medical History / Comment(s): PROSTATE CANCER Medications and Allergies Home Medications Medication Instructions Recorded Confirmed Type Escitalopram [Lexapro] 10 mg PO DAILY 09/10/22 09/10/22 History Sulfamethox-Tmp 800-160Mg [Bactrim 1 tab PO Q12HR 09/10/22 09/10/22 History DS 800-160 mg] lisinopriL [Zestril] 10 mg PO DAILY 09/10/22 09/10/22 History Allergies Allergy/AdvReac Type Severity Reaction Status Date / Time No Known Allergies Allergy Verified 09/10/22 12:52 Physical Exam Vitals: Vital Signs Temp Pulse Pulse Resp BP BP Pulse Ox 09/11/22 07:33 98.2 F 68 17 141/76 95 09/11/22 01:20 98.1 F 71 16 125/81 96 09/10/22 19:56 98.6 F 71 18 143/79 94 L 09/10/22 14:08 98.1 F 57 L 19 175/85 96 09/10/22 13:38 73 16 152/94 96 Intake and Output 09/10/22 09/11/22 09/11/22 22:59 06:59 14:59 Intake Total 100 Balance 100 Intake: IV 100 Sodium Chloride 0.9% 1, 100 000 ml @ 20 mls/hr IV . Q24H [facility] Rx#:[id number] Other: # Voids 1 Head normocephalic Neck supple Lungs clear to auscultation bilaterally no wheezing or crackles Heart regular rate and rhythm S1-S2, no rub or gallop Abdomen is soft nontender nondistended positive bowel sounds no hepatosplenomegaly Extremities no edema Neuro alert and orientated to 3 Results CBC & Chem 7: 09/10/22 10:12 09/10/22 10:12 Labs: Abnormal Lab Results - Last 24 Hours (Table) 09/10/22 Range/Units 10:12 Sodium 136 L (137-145) mmol/L Carbon Dioxide 20 L (22-30) mmol/L Glucose 106 H (74-99) mg/dL Thrombosis Risk Factor Assmnt - Choose All That Apply Each Factor Represents 1 point: Varicose veins Each Risk Factor Represents 2 Points: Age 61-74 years Thrombosis Risk Factor Assessment Total Risk Factor Score: 3 Thrombosis Risk Factor Assessment Level: Moderate Risk Assessment and Plan Assessment: 1. Dizziness. 2. History of GERD 3. History of essential hypertension 4. History of hyperlipidemia 5. History of anxiety and depression DVT prophylaxis Lovenox. GI prophylaxis Protonix 2-D echo ordered Carotid Doppler negative Neurology services consulted Time with Patient: Greater than 30 (Greater than 60% of the total time spent in counseling and coordination of care)
[2022-09-11] MEDS: ESCITALOPRAM 10 MG TAB PO SCH (11:43)
[2022-09-11] MEDS: lisinopriL 10 MG TAB PO SCH (11:43)
[2022-09-11] MEDS: SODIUM CHLORIDE 0.9% 1,000 ML IV SCH (11:44)
--- NOTE | 2022-09-11 12:51 | P.CNNES ---
History of Present Illness Consult date: 09/10/22 Requesting physician: Reinier Sol Reason for Consult: Vertigo History of Present Illness: Patient is a 66-year-old right-handed female with long-standing history of intermittent dizziness/vertigo came to the hospital by ambulance today at 9:36 AM for another episode of vertigo. Patient states that she woke up with dizziness on 08/29/2022. She couldn't sit, stand and the dizziness was continuous. Sometimes she could sit up and nothing would spend. Sometimes moving head causes spinning. The spinning did use until she lays down. If she is not moving, then no spinning. She does complain of headache, nausea. She feels that if she moves a little, the dizziness will start. She feels that is slightly getting better. When she gets up, and sits spins again. When she has to turn to the left or right, it has to be very slow otherwise she spins. Patient says that she has history of dizziness as early as she was age 9 or 10. It would last a few days. She would see her doctor, who told that it was a sin us infection, would give antibiotics and the symptoms would resolve. Patient has seen an ENT specialist, who gave "dizzy test", and couldn't find anything. She has never tried vestibular therapy. Patient states that she has "countless times" of disease spells. Patient denies any tinnitus, loss of hearing, pressure in the ears any problems in the ears or any infection of the ear. Patient states that the last time she was dizzy was in September 2021. Patient states that this is the longest that she had the episode of dizziness, going on for 12 days. EMS flow sheet not available in the chart, patient's vitals on arrival blood pressure 139/83, pulse rate 64, temperature 97.6. Patient's blood test shows normal CBC, PT/PTT, sodium 136 potassium 4.2, normal renal functions, calcium 9.2. CT head revealed no acute intracranial process. I personally reviewed CT head, agree with the findings. Very mild air-fluid level in the sphenoid sinus. Other sinuses are clear. External auditory canals are clear. Patient apparently had MRI of the internal auditory canal, with and without contrast on 05/04/2018 performed by ENT specialist Dr. Obermeyer for "vertigo". It revealed no cerebellopontine angle mass or acoustic schwannoma. Nonspecific white matter changes may be on the basis of remote microvascular ischemia. Demyelinating process is not excluded, correlate clinically. Partially empty sella turcica. Patient had a sinuses CT performed on 11/08/2018 which revealed prior medial maxillary antrostomies. There is only trace mucosal thickening along the floor of the left maxillary sinus. Slight leftward nasal septal deviation. Home medication includes lisinopril 10 mg, Lexapro 10 mg and Bactrim. Review of Systems Constitutional: Denies chills, Denies fever Eyes: denies blurred vision, denies diplopia, denies pain Ears: deny: decreased hearing, ear discharge, earache, tinnitus Ears, nose, mouth and throat: Denies headache, Denies sore throat Cardiovascular: Denies chest pain, Denies shortness of breath Respiratory: Denies cough, Denies excessive sputum Gastrointestinal: Reports nausea, Reports vomiting, Denies abdominal pain, Denies diarrhea Genitourinary: Denies dysuria, Denies hematuria Musculoskeletal: Denies low back pain, Denies myalgias, Denies neck pain Integumentary: Denies pruritus, Denies rash Neurological: Reports as per HPI Psychiatric: Reports anxiety, Reports depression Endocrine: Denies fatigue, Denies weight change Past Medical History Past Medical History: GERD/Reflux, Hyperlipidemia, Hypertension, Musculoskeletal Disorder Additional Past Medical History / Comment(s): Hx RLS. Mild Varicose Veins. Osteoporosis - gets yearly infusion. Kidney stone x2. History of Any Multi-Drug Resistant Organisms: None Reported Past Surgical History: Cholecystectomy, Hernia Repair, Hysterectomy, Orthopedic Surgery Additional Past Surgical History / Comment(s): ORIF LT wrist. TUBAL . TMJ, JAW SURGERY. COLONOSCOPY. EGD, Cataracts removed w/ bilateral lens im plants. Hiatal hernia repair. Past Anesthesia/Blood Transfusion Reactions: Motion Sickness, Postoperative Nausea & Vomiting (PONV) Past Psychological History: Anxiety, Depression Smoking Status: Former smoker Past Alcohol Use History: Occasional Past Drug Use History: Marijuana - Past Family History Father Family Medical History: Cancer Additional Family Medical History / Comment(s): PROSTATE CANCER Medications and Allergies Home Medications Medication Instructions Recorded Confirmed Type Escitalopram [Lexapro] 10 mg PO DAILY 09/10/22 09/10/22 History Sulfamethox-Tmp 800-160Mg [Bactrim 1 tab PO Q12HR 09/10/22 09/10/22 History DS 800-160 mg] lisinopriL [Zestril] 10 mg PO DAILY 09/10/22 09/10/22 History Allergies Allergy/AdvReac Type Severity Reaction Status Date / Time No Known Allergies Allergy Verified 09/10/22 12:52 Physical Examination - Vital Signs Vital Signs: Vital Signs Temp Pulse Pulse Resp BP BP Pulse Ox 09/10/22 14:08 98.1 F 57 L 19 175/85 96 09/10/22 13:38 73 16 152/94 96 09/10/22 09:40 97.6 F 64 16 139/83 100 Intake and Output 09/09/22 09/10/22 09/10/22 22:59 06:59 14:59 Other: Weight 51.256 kg Patient is an elderly female, very pleasant, in no acute distress. Patient is alert awake oriented to time place and person. Speech and language functions are normal. Patient can name and repeat very well. No aphasia or dysarthria. Attention, concentration and fund of knowledge is adequate. On cranial nerve examination, pupils are equal, round and reacting to light, visual isaacs are full on confrontation, with no neglect on double simultaneous stimulation. Extraocular muscles are intact with no nystagmus. Face is symmetric, tongue protrudes to the midline. Palatal elevation and sensation nor mal, hearing and shoulder shrug normal, facial sensation normal. On muscle strength testing, there is no pronator drift and the strength is normal in arms and legs distally and proximally. Deep tendon reflexes are symmetric 2+3 at the biceps, 2+3 at the brachioradialis, 3 at the knees, 2 ankles and plantars downgoing bilaterally. Sensory to touch is equal with no neglect on double simultaneous stimulation. Cerebellar function showed no ataxia for [id number]-ch-dwpd testing, although she is slightly tremulous for hteyfo-[id number] testing, left more than right. No dysdiadochokinesia. No ataxia for cgof-cb-[id number] testing on either side. Tone and bulk of muscles normal. Gait deferred.. On general examination, there is no carotid bruit or murmur, S1-S2 audible. Chest is clear on consultation. Abdomen is soft nontender. No organomegaly, bowel sounds present. Peripheral pulses are present. No edema. Results - Laboratory Findings CBC and BMP: 09/10/22 10:12 09/10/22 10:12 Abnormal Lab Findings: Abnormal Labs 09/10/22 10:12 Sodium 136 L Carbon Dioxide 20 L Glucose 106 H Assessment and Plan Assessment: * Recurrent episodes of vertigo, most likely due to peripheral vascular dysfunction. Differential diagnosis includes benign positional vertigo, versus less likely Mnire's disease. Patient denies any tinnitus, or hearing loss. * Hypertension * Hyperlipidemia Plan: * Patient has likely long-standing history of recurrent episodes of vertigo. Symptoms get worse with changing of head or body position. Suspect BPPV. * Continue meclizine 25 mg 3 times a day * Recommend vestibular rehabilitation as an outpatient. * I would also treat in lines of possible Mnire's disease, with hydrochlorothiazide 12.5 mg daily. Her blood pressure is up, will help with that as well. * Recommended low-salt diet. * CTA of head and neck revealed no evidence of dissection of the cervical i nternal carotid arteries or vertebral arteries or any evidence of significant stenosis of the carotid bifurcations. No evidence of intracranial high-grade stenosis or intracranial aneurysm. * Check B12, folate, MMA. * Neurologically will be clear for discharge, and the dizziness resolves. May follow up with ENT specialist outpatient for ENG/VNG. * Thank you for the consult.
[2022-09-11] MEDS: FOLIC ACID 1 MG TAB PO SCH (15:00)
[2022-09-11] MEDS ORDERED: CYANOCOBALAMIN 1,000 MCG/ML 1 ML VIAL IM ONE (16:54)
[2022-09-12 02:30] VITALS: RESP 16
[2022-09-12] MEDS ORDERED: PANTOPRAZOLE 40 MG TABLET PO SCH (07:30)
[2022-09-12] MEDS: FOLIC ACID 1 MG TAB PO SCH (08:24)
[2022-09-12] MEDS: lisinopriL 10 MG TAB PO SCH (08:25)
[2022-09-12] MEDS: hydroCHLOROthiazide 12.5 MG CAP PO SCH (08:26)
[2022-09-12] MEDS: ESCITALOPRAM 10 MG TAB PO SCH (08:26)
[2022-09-12] MEDS: MECLIZINE 25 MG TAB PO SCH (08:32)
[2022-09-12] MEDS ORDERED: ENOXAPARIN 40 MG/0.4 ML SYRINGE SQ SCH (09:00)
[2022-09-12] MEDS ORDERED: CYANOCOBALAMIN 500 MCG TAB PO SCH (09:00)
--- NOTE | 2022-09-12 10:24 | P.PN ---
Subjective Progress Note Date: 09/11/22 Patient was seen for a follow-up. Patient says that she is about 50% better. If she puts her head down, she gets dizzy. Denies any new neurological symptoms. Patient denies any hearing loss, or tinnitus. Objective - Vital Signs Vital signs: Vital Signs Temp 97.9 F 09/11/22 14:00 Pulse 81 09/11/22 14:00 Resp 18 09/11/22 14:00 BP 131/82 09/11/22 14:00 Pulse Ox 94 L 09/11/22 14:00 FiO2 Intake & Output 09/10/22 09/11/22 09/11/22 18:59 06:59 18:59 Intake Total 100 Balance 100 Weight 51.256 kg Intake: IV 100 Sodium Chloride 0.9% 1, 100 000 ml @ 20 mls/hr IV . Q24H [facility] Rx#:[id number] Other: Voiding Method Bedpan # Voids 1 3 - Exam Patient's mental status, speech and language functions are normal. Patient's hearing is completely normal for finger rubbing bilaterally, also normal for routine conversation. Patient does have nystagmus with the left and gaze, with fast component to the left. Patient became dizzy, when her head end of the bed was brought down. She also became quite dizzy, when she rolled over to the right, but not to the left. Also had more intense nystagmus when she was dizzy rolling over to the right. Patient's muscle strength is normal. No ataxia. - Labs CBC & Chem 7: 09/10/22 10:12 09/10/22 10:12 Assessment and Plan Assessment: * Recurrent episodes of vertigo, most likely due to peripheral vascular dysfunction. Acute exacerbation since 08/29/2022 suggest possible labyrinthitis. Patient probably has underlying chronic recurrent benign positional vertigo. Doubt Mnire's disease, with normal hearing, and lack of tinnitus. * Hypertension * Hyperlipidemia Plan: * Patient has likely long-standing history of recurrent episodes of vertigo. Symptoms get worse with changing of head or body position. Suspect BPPV. * Continue meclizine 25 mg 3 times a day * Recommend vestibular rehabilitation as an outpatient. * Patient probably does not have Mnire's disease, as there is no hearing loss, or tinnitus. However may continue with hydrochlorothiazide 12.5 mg daily for prevention of dizzy spells. Her blood pressure is up, will help with that as well. * Patient's hemoglobin A1c 5.9 on 04/09/2021 * Lipid panel with cholesterol 1:15, LDL 46, HDL 57 and triglycerides 55. Completely normal lipids. * Her blood pressure is now well controlled. * CTA of head and neck revealed no evidence of dissection of the cervical internal carotid arteries or vertebral arteries or any evidence of significant stenosis of the carotid bifurcations. No evidence of intracranial high-grade stenosis or intracranial aneurysm. * Echo ordered by PCP, still pending. * B12 340, folate 7.4, both are borderline. We will give 1 dose of vitamin B12 1000 mg IM 1 dose, and then continue B12 500 g orally daily. Also will start folic acid 1 mg daily. MMA level still pending. * May follow up with ENT specialist outpatient for ENG/VNG. * Neurologically clear if the 2-D echo comes back normal.
[2022-09-12] MEDS: SODIUM CHLORIDE 0.9% 1,000 ML IV SCH (13:53)
[2022-09-12 14:52] VITALS: BP 101/75; PULSE 101; TEMP 97.8
--- NOTE | 2022-09-12 15:22 | P.DS ---
Providers Date of admission: 09/10/22 12:41 Expected date of discharge: 09/12/22 Attending physician: Marciano Cavazos Consults: 09/10/22 12:41 Consult Physician Routine Consulting Provider: Aidan Bassett Consult Reason/Comments: vertigo Do you want consulting provider notified?: Yes Primary care physician: Ena Pagan Hospital Course: Diagnosis on discharge: 1. Dizziness. Likely related to inner ear vertigo. 2. History of GERD 3. History of essential hypertension 4. History of hyperlipidemia 5. History of anxiety and depression Hospital course: This is a 66-year-old female patient of Dr. Pagan who presented to ER with concerns of dizziness that has lasted 2 weeks. Patient reports that she's had this episode previously performed was treated with antibiotics for sinus issues in resolved but this time the symptoms presented increasingly worse. Patient has a past medical history of GERD, hyperlipidemia, hypertension anxiety and depression. Head CT completed showing no acute intracranial process. CTA showing no hemodynamically significant internal carotid artery stenosis on either side. EKG showing normal sinus rhythm. Lab work unremarkable. Vital signs temp 98.2, heart rate 68, respiratory rate 17, blood pressure 141/76 with a pulse ox of 95% on room air. Patient started on Antivert along with hydrochlorothiazide per neurology services 2-D echo has been ordered. This time patient does report improvement. Patient denies chest pain. Patient denies nausea vomiting or diarrhea. Patient denies any urinary burning or frequency On 09/12/2022 patient was seen and examined on the medical floor she is alert and oriented 3 in no apparent distress her symptoms has improved significantly she is maintained on meclizine 25 mg 3 times daily, she was evaluated by neurology as was cleared for discharge, echocardiogram was done but results are still not available, patient is really anxious to go home, at this time she will be discharged home, echocardiogram results can be discussed with primary care physician on follow-up. Patient should follow with Dr. rg within one week. Patient Condition at Discharge: Fair Plan - Discharge Summary Discharge Rx Participant: No New Discharge Prescriptions: New Folic Acid 1 mg PO DAILY tab Cyanocobalamin [Vitamin B-12] 500 mcg PO DAILY tab Meclizine [Antivert] 25 mg PO TID tab hydroCHLOROthiazide [Hydrodiuril] 12.5 mg PO DAILY cap Continue Escitalopram [Lexapro] 10 mg PO DAILY lisinopriL [Zestril] 10 mg PO DAILY Discontinued Sulfamethox-Tmp 800-160Mg [Bactrim DS 800-160 mg] 1 tab PO Q12HR Discharge Medication List Escitalopram [Lexapro] 10 mg PO DAILY 09/10/22 [History] lisinopriL [Zestril] 10 mg PO DAILY 09/10/22 [History] Cyanocobalamin [Vitamin B-12] 500 mcg PO DAILY tab 09/12/22 [Rx] Folic Acid 1 mg PO DAILY tab 09/12/22 [Rx] Meclizine [Antivert] 25 mg PO TID tab 09/12/22 [Rx] hydroCHLOROthiazide [Hydrodiuril] 12.5 mg PO DAILY cap 09/12/22 [Rx] Follow up Appointment(s)/Referral(s): Ena Pagan MD [Primary Care Provider] - 1-2 days
--- NOTE | 2022-09-12 16:20 | CA ---
Transthoracic Echo Report Name: Johanna Crews Age: 66 Gender: F : 1955 Exam Date: 09/12/2022 09:57 Exam Location: [facility] Ht (in): 64 Wt (lb): 113 Ordering Physician: Maricano Cavazos MD Attending/Referring Phys: Conveyor Maintenance Mechanic Elda Haskins RDCS Procedure CPT: Indications: dizziness Cardiac Hx: Technical Quality: Fair Contrast 1: Total Dose (mL): Contrast 2: Total Dose (mL): MEASUREMENTS (Male / Female) Normal Values 2D ECHO LV Diastolic Diameter PLAX 3.1 cm 4.2 - 5.9 / 3.9 - 5.3 cm LV Systolic Diameter PLAX 1.9 cm IVS Diastolic Thickness 1.3 cm 0.6 - 1.0 / 0.6 - 0.9 cm LVPW Diastolic Thickness 1.2 cm 0.6 - 1.0 / 0.6 - 0.9 cm LV Relative Wall Thickness 0.8 RV Internal Dim ED PLAX 2.6 cm LA Volume 23.7 cm??? 18 - 58 / 22 - 52 cm??? M-MODE Aortic Root Diameter MM 2.9 cm LA Systolic Diameter MM 2.6 cm LA Ao Ratio MM 0.9 AV Cusp Separation MM 1.7 cm DOPPLER AV Peak Velocity 118.5 cm/s AV Peak Gradient 5.6 mmHg AV Mean Velocity 91.4 cm/s AV Mean Gradient 3.5 mmHg AV Velocity Time Integral 17.4 cm LVOT Peak Velocity 106.7 cm/s LVOT Peak Gradient 4.6 mmHg LVOT Velocity Time Integral 20.3 cm MV Area PHT 5.2 cm??? Mitral E Point Velocity 50.2 cm/s Mitral A Point Velocity 72.6 cm/s Mitral E to A Ratio 0.7 MV Deceleration Time 144.9 ms MV E' Velocity 5.2 cm/s Mitral E to MV E' Ratio 9.7 TR Peak Velocity 217.0 cm/s TR Peak Gradient 18.8 mmHg Right Ventricular Systolic Press 23.6 mmHg FINDINGS Left Ventricle Mildly increased left ventricular wall thickness. Left ventricular cavity size normal. Normal left ventricular systolic function with no obvious regional wall motion abnormalities. Left ventricular ejection fraction is estimated at 55-60 %. Right Ventricle Normal right ventricular size and function. Right ventricular systolic pressure within normal limits. Right Atrium Normal right atrial size. Left Atrium Normal left atrial size. Mitral Valve Structurally normal mitral valve. No mitral stenosis, regurgitation or prolapse. Aortic Valve Trileaflet aortic valve. No aortic valve stenosis or regurgitation. Tricuspid Valve Structurally normal tricuspid valve. Mild tricuspid regurgitation. Pulmonic Valve Structurally normal pulmonic valve. No pulmonic regurgitation. Pericardium No pericardial effusion. Aorta Normal size aortic root and proximal ascending aorta. CONCLUSIONS Mild concentric LVH, normal LV size and systolic function with EF estimated at 55-60% No significant valvular disease No significant diastolic dysfunction No prior echo to compare with Previewed by: Mik Perry MD Dr Anubhav Jain (Electronically Signed) Final Date: 12 September 2022 16:19
== END 2022-09-12 16:36 | disposition home or self-care (01) ==
LOC: EC 09:36 → 4SSUR 12:41 → INTOOBSV 12:41 → 4SSUR 13:17 → UNDODISIN 09-12 16:36
PROVIDERS: ADMIT Internal Medicine; ATTEND Internal Medicine
DX: R42 Dizziness and giddiness (principal); E78.00 Pure hypercholesterolemia, unspecified; I10 Essential (primary) hypertension; K21.9 Gastro-esophageal reflux disease without esophagitis; F41.9 Anxiety disorder, unspecified; F32.A Depression, unspecified; Z87.891 Personal history of nicotine dependence; Z79.51 Long term (current) use of inhaled steroids; Z79.899 Other long term (current) drug therapy
CPT/HCPCS: 96361 ×3; 96372 ×2; 96375; 96374; 99285; 36415; 93005; 93306; 83921; 80048; 82607; 82746; 85025; 85610; 85730; 93880; 70496; 70450; 70498; G0378 ×3; J3420; J2765; J2405; J1650; Q9967

== ENCOUNTER → 2023-07-11 | Outpatient (CLI) | payer MEDICARE ==
--- NOTE | 2023-07-11 20:45 | BD ---
EXAMINATION TYPE: Axial Bone Density DATE OF EXAM: 07/11/2023 CLINICAL HISTORY: 67 years old Female. ICD-10 CODE: M81.0 OSTEOPOROSIS Height: 62.8 Weight: 114 FRAX RISK QUESTIONS: Family History (Parent hip fracture): yes History of Fracture in Adulthood: yes 3. Menopause before 45: no, at 48 RISK FACTORS HISTORY OF: History of Wrist Fracture: left, at age 58 with surgical repair. MEDICATIONS: bp meds, cholesterol meds, clairitan, multivitamin EXAM MEASUREMENTS: Bone mineral densitometry was performed using the [employer] System. Bone mineral density as measured about the Lumbar spine is: ----- L1-L4(G/cm2): 0.830 T Score Values are as follows: ----- L1: -2.4 ----- L2: -2.8 ----- L3: -3.2 ----- L4: -3.4 ----- L1-L4: -2.9 Z Score Values are as follows: ----- L1: -0.3 ----- L2: -0.7 ----- L3: -1.1 ----- L4: -1.3 ----- L1-L4: -0.9 Bone mineral density has: Decreased -2.0% since study of: 07.06.2021 Bone mineral density about the R hip (g/cm2): 0.698 Bone mineral density about the L hip (g/cm2): 0.712 T Score values are as follows: -----R Neck: -2.7 -----L Neck: -2.4 -----R Total: -2.5 -----L Total: -2.4 Z Score values are as follows: -----R Neck: -0.9 -----L Neck: -0.6 -----R Total: -0.9 -----L Total: -0.8 Bone mineral density has: Increased 5.4% since study of: 07.06.2021 FRAX%s: The graph provided illustrates a 20.8% chance for a major osteoporotic fx and a 5.4% chance f or the hips probability for fx in 10 years time. IMPRESSION: Osteoporosis (T Score less than -2.5). There is increased fracture risk and therapy is usually indicated based on age. Re-Screen 1-2 years. NOTE: T-SCORE=SD OF THE YOUNG ADULT MEAN.
--- NOTE | 2023-07-12 18:48 | MM ---
Reason for Exam: Screening (asymptomatic). Last mammogram was performed 2 year(s) and 2 month(s) ago. Patient History: Menarche at age 16. First Full-Term at age 27. Hysterectomy at age 41. Postmenopausal. Core Biopsy on the Left side. 09/21/1998, Benign Ultrasound-Guided Core Biopsy on the left side. Risk Values: Kim 5 year model risk: 2.5%. NCI Lifetime model risk: 9.4%. Prior Study Comparison: 07/13/2017 Bilateral Screening Mammogram, [facility]. 02/19/2019 Bilateral Screening Mammogram, [facility]. 05/07/2021 Bilateral Screening Mammogram, [facility]. Tissue Density: The breasts are heterogeneously dense, which may obscure small masses. Findings: Analyzed By CAD. There is no suspicious group of microcalcifications or new suspicious mass in either breast. Overall Assessment: Benign, BI-RAD 2 Management: Screening Mammogram of both breasts in 1 year. . Patient should continue monthly self-breast exams. A clinical breast exam by your physician is recommended on an annual basis. This exam should not preclude additional follow-up of suspicious palpable abnormalities. Note on Kim scores and lifetime risk: 1. A Kim score greater than 3% is considered moderate risk. If this is the case, consider specialist referral to assess eligibility for a risk reducing agent. 2. If overall lifetime risk for the development of breast cancer is 20% or higher, the patient may qualify for future screening with alternating mammogram and breast MRI. Electronically signed and approved by: Yvette Marie M.D. Radiologist
== END | disposition home or self-care (01) ==
LOC: RADMAMWWP 09:51
PROVIDERS: ATTEND Family Medicine
DX: Z12.31 Encounter for screening mammogram for malignant neoplasm of breast (principal); M81.0 Age-related osteoporosis without current pathological fracture; M85.89 Other specified disorders of bone density and structure, multiple sites; Z78.0 Asymptomatic menopausal state
CPT/HCPCS: 77063; 77067; 77080

== ENCOUNTER → 2024-08-13 | Outpatient (CLI) | payer MEDICARE ==
--- NOTE | 2024-08-13 12:00 | MM ---
Reason for Exam: Screening (asymptomatic). Last mammogram was performed 1 year(s) and 1 month(s) ago. Patient History: Menarche at age 16. First Full-Term at age 27. Hysterectomy at age 41. Postmenopausal. Core Biopsy on the Left side. 09/21/1998, Benign Ultrasound-Guided Core Biopsy on the left side. Risk Values: Kim 5 year model risk: 2.5%. NCI Lifetime model risk: 9.0%. Prior Study Comparison: 11/09/2015 Screening Mammogram, [facility]. 07/13/2017 Bilateral Screening Mammogram, [facility]. 02/19/2019 Bilateral Screening Mammogram, [facility]. 05/07/2021 Bilateral Screening Mammogram, [facility]. 07/11/2023 Bilateral MG 3D screening mammo w/cad, [facility]. Tissue Density: The breasts are heterogeneously dense, which may obscure small masses. Findings: Analyzed By CAD. There is no suspicious group of microcalcifications or new suspicious mass in either breast. Overall Assessment: Negative, BI-RAD 1 Management: Screening Mammogram of both breasts in 1 year. Patient should continue monthly self-breast exams. A clinical breast exam by your physician is recommended on an annual basis. This exam should not preclude additional follow-up of suspicious palpable abnormalities. Note on Kim scores and lifetime risk: 1. A Kim score greater than 3% is considered moderate risk. If this is the case, consider specialist referral to assess eligibility for a risk reducing agent. 2. If overall lifetime risk for the development of breast cancer is 20% or higher, the patient may qualify for future screening with alternating mammogram and breast MRI. [facility], , 08/13/2024 11:57 AM. Electronically signed and approved by: Yvette Marie M.D. Radiologist
== END | disposition home or self-care (01) ==
LOC: RADMAMWWP 10:41
PROVIDERS: ATTEND Internal Medicine
DX: Z12.31 Encounter for screening mammogram for malignant neoplasm of breast (principal); R92.333 Mammographic heterogeneous density, bilateral breasts; Z78.0 Asymptomatic menopausal state
CPT/HCPCS: 77063; 77067